=== PATIENT | male | born 1960 | race African-American/Black ===

== ENCOUNTER 2018-06-29 16:56 | Inpatient (IN) | payer SELFPAY ==
[~2018-06-29] VITALS: Ht 193 cm; Wt 117.9 kg
[2018-06-29] MEDS ORDERED: cloNIDine HCL 0.1 MG TAB PO ONE (17:15)
[2018-06-29 19:41] LABS: Basophils # (auto) 0 uL; Basophils % (auto) 0.9 % (0.0-2.0); Eosinophils # (auto) 0.1 uL; Eosinophils % (auto) 1.4 % (0.0-7.0); Hematocrit 44.7 % (41.0-53.0); Hemoglobin 14.8 g/dL (13.5-17.5); Lymphocytes # (auto) 1.6 uL; Lymphocytes % (auto) 28.3 % (10.0-50.0); Mean Corpuscular Hgb Conc. 33.1 g/dL (32.0-36.0); Mean Corpuscular Volume 87.8 fL (80.0-100.0); Monocytes # (auto) 0.6 uL; Monocytes % (auto) 10.8 % (0.0-12.0); Neutrophils # (auto) 3.3 uL; Neutrophils % (auto) 58.6 % (37.0-80.0); Platelet Count (auto) 221 10^3/uL (140-450); Red Cell Distribution Width 14.9 % (11.8-14.3); White Blood Cell 5.6 10^3/uL (4.4-10.8)
[2018-06-29 19:44] LABS: Partial Thromboplastin Time 27.7 sec (23.78-33.04); Prothrombin Time 10.7 sec (9.27-12.13)
[2018-06-29 19:55] LABS: Albumin 3.6 g/dL (3.4-5.0); Calcium 8.7 mg/dL (8.5-10.1)
[2018-06-29 20:03] LABS: BUN/Creatinine Ratio 11.3; Bilirubin, Total 0.5 mg/dL (0.2-1.0); Total Protein 7.3 g/dL (6.4-8.2)
[2018-06-29] MEDS ORDERED: ASPirin 81 mg TAB PO ONE (20:15)
[2018-06-29] MEDS ORDERED: hydrALAZINE HCL 20 MG/ML VL IV ONE (21:30)
[2018-06-29] MEDS: METOPROLOL TARTRATE 25 MG TAB PO SCH (22:00)
[2018-06-29] MEDS: ATORVASTATIN 20 MG TAB PO SCH (22:00)
[2018-06-29] MEDS ORDERED: ONDANSETRON HCL 4 MG/2 ML VIAL IV PRN (22:00)
[2018-06-29] MEDS ORDERED: MORPHINE SULFATE 4 MG/ML SYR/VIAL IV PRN (23:00)
[2018-06-29] MEDS ORDERED: NITROGLYCERIN 0.4 MG SL TAB SL PRN (23:00)
[2018-06-29] MEDS ORDERED: ENOXAPARIN SOD 120 MG/0.8 ML SYRINGE SC ONE (23:20)
[2018-06-30] MEDS: NITROGLYCERIN 50MG/250ML 250 ML IV SCH ×2 (00:22→16:49)
[2018-06-30 01:46] LABS: Urine WBC None Seen /hpf (0 - 3)
[2018-06-30 01:52] LABS: Urine Bacteria NONE SEEN /hpf (None Seen); Urine Blood Negative /uL (Negative); Urine Specific Gravity 1.003 (1.001-1.035)
[2018-06-30 03:06] LABS: Alcohol, Urine < 3.0 mg/dL (0-5); Amphetamine Screen, Urine NEGATIVE (NEGATIVE); Barbiturate Scree,Urine NEGATIVE (NEGATIVE); Benzodiazephine Screen, Urine NEGATIVE (NEGATIVE); Cannabinoid Screen, Urine POSITIVE (NEGATIVE); Cocaine Screen, Urine NEGATIVE (NEGATIVE); Opiate Scree,Urine NEGATIVE (NEGATIVE); Phencyclidine Screen, Urine NEGATIVE (NEGATIVE)
[2018-06-30 06:30] LABS: Basophils # (auto) 0 uL; Basophils % (auto) 0.8 % (0.0-2.0); Eosinophils # (auto) 0.1 uL; Eosinophils % (auto) 1.7 % (0.0-7.0); Hematocrit 43.5 % (41.0-53.0); Hemoglobin 14.4 g/dL (13.5-17.5); Lymphocytes # (auto) 1.6 uL; Lymphocytes % (auto) 29.7 % (10.0-50.0); Mean Corpuscular Hemoglobin 28.8 pg (28.0-32.0); Mean Corpuscular Hgb Conc. 33.2 g/dL (32.0-36.0); Mean Corpuscular Volume 86.9 fL (80.0-100.0); Monocytes # (auto) 0.6 uL; Monocytes % (auto) 12.1 % (0.0-12.0); Neutrophils # (auto) 2.9 uL; Neutrophils % (auto) 55.7 % (37.0-80.0); Nucleated Red Blood Cells % 0.1 %; Platelet Count (auto) 208 10^3/uL (140-450); Red Cell Distribution Width 14.9 % (11.8-14.3); White Blood Cell 5.2 10^3/uL (4.4-10.8)
[2018-06-30 06:48] LABS: Calcium 8.7 mg/dL (8.5-10.1)
[2018-06-30 06:53] LABS: BUN/Creatinine Ratio 11.9
[2018-06-30] MEDS: ACETAMINOPHEN 500 MG TAB PO PRN ×2 (07:50→13:47)
[2018-06-30] MEDS: ASPirin-EC 81 mg tab PO SCH (09:39)
[2018-06-30] MEDS: ENOXAPARIN SOD 120 MG/0.8 ML SYRINGE SC SCH ×2 (09:39→21:53)
[2018-06-30] MEDS: METOPROLOL TARTRATE 25 MG TAB PO SCH (09:39)
[2018-06-30] MEDS ORDERED: METOPROLOL TARTRATE 1MG/1ML-5ML VIAL IV ONE (15:15)
[2018-06-30] MEDS: cloNIDine HCL 0.1 MG TAB PO PRN ×2 (16:25→19:14)
[2018-06-30] MEDS ORDERED: HCTZ 25 MG TAB PO ONE (19:15)
[2018-06-30] MEDS ORDERED: POTASSIUM CHLORIDE 8 MEQ TAB PO ONE (19:15)
[2018-06-30] MEDS: ATORVASTATIN 20 MG TAB PO SCH (21:51)
[2018-06-30] MEDS: METOPROLOL TARTRATE 50 MG TAB PO SCH (21:52)
[2018-06-30] MEDS: cloNIDine HCL 0.1 MG TAB PO SCH (21:52)
[2018-06-30] MEDS: LISINOPRIL 20 MG TAB PO SCH (21:53)
[2018-07-01 05:45] VITALS: BP 137/76
--- NOTE | 2018-07-01 05:45 | NUR ---
Telemetry admit from ER COLTEN WEEKSDERICK admitted to Telemetry unit after hand off tool received. Patient oriented to primary RN, unit, room, bed, and unit policies regarding patient care and visiting hours. Patient now on continuous telemetry monitoring, tele box #24 and telemetry reading on arrival to unit is SR 62. Patient placed on bedside weighed by bedscale and encouraged to call if they need something. All questions and concerns addressed, patient verbalized understanding.
[2018-07-01 06:14] LABS: Basophils # (auto) 0 uL; Basophils % (auto) 0.4 % (0.0-2.0); Eosinophils # (auto) 0.1 uL; Eosinophils % (auto) 1.1 % (0.0-7.0); Hematocrit 41.6 % (41.0-53.0); Hemoglobin 13.9 g/dL (13.5-17.5); Lymphocytes # (auto) 2.1 uL; Lymphocytes % (auto) 26.4 % (10.0-50.0); Mean Corpuscular Hgb Conc. 33.3 g/dL (32.0-36.0); Mean Corpuscular Volume 87.1 fL (80.0-100.0); Monocytes # (auto) 1.2 uL; Monocytes % (auto) 14.6 % (0.0-12.0); Neutrophils # (auto) 4.6 uL; Neutrophils % (auto) 57.5 % (37.0-80.0); Platelet Count (auto) 198 10^3/uL (140-450); Red Blood Cells 4.78 10^6/uL (4.5-5.90); Red Cell Distribution Width 14.5 % (11.8-14.3); White Blood Cell 7.9 10^3/uL (4.4-10.8)
[2018-07-01 06:37] LABS: Albumin 3.3 g/dL (3.4-5.0); Calcium 8.5 mg/dL (8.5-10.1)
[2018-07-01 06:45] LABS: BUN/Creatinine Ratio 12.4; Bilirubin, Total 1.2 mg/dL (0.2-1.0); Total Protein 6.9 g/dL (6.4-8.2)
[2018-07-01 08:57] VITALS: BP 134/76
[2018-07-01] MEDS ORDERED: POTASSIUM CHLORIDE 8 MEQ TAB PO SCH (10:00)
[2018-07-01] MEDS ORDERED: HCTZ 25 MG TAB PO SCH (10:00)
--- NOTE | 2018-07-01 10:26 | NUR ---
assessment Per consult no pcp. Stephanie Avitia to see patient for PCP. Addendum: 07/03/18 at 1727 by Stephanie Elena Amended: Links added.
[2018-07-01] MEDS: METOPROLOL TARTRATE 50 MG TAB PO SCH (10:54)
[2018-07-01] MEDS: cloNIDine HCL 0.1 MG TAB PO SCH (10:55)
[2018-07-01] MEDS: ASPirin-EC 81 mg tab PO SCH (10:57)
[2018-07-01] MEDS: LISINOPRIL 20 MG TAB PO SCH (10:58)
[2018-07-01] MEDS: ENOXAPARIN SOD 120 MG/0.8 ML SYRINGE SC SCH (10:59)
--- NOTE | 2018-07-01 11:00 | NUR ---
SITTING ON BED C/O OF UN ABLE TO KUMAR WITH LT. HAND, DR. JAEGER IS AWARE, NOT IN DISTRESS, DENIED PAIN.
--- NOTE | 2018-07-01 11:26 | NUR ---
RECEIVED THE PATIENT ALERT AND ORIENTED X4, NOT IN DISTRESS, CLEAR SOUNDS IN BILATERAL UPPER AND LOWER LL, RR=18 SAT 97% IN RA, DENIED CHEST PAIN, S RHYTHM R=86, ABDOMEN SOFT WITH ACTIVE BS, TOLERATED 100% OF BREAKFAST TRAY, LAST BM=06/30/18 REPORTED, SKIN INTACT WARM TO TOUCH, RADIAL AND PEDAL PULSES PALPABLE, AMBULATED TO BR, TOLERATED WELL, PENDING SS CONSULT, WILL CONTINUE MONITORING.
[2018-07-01 12:05] VITALS: BP 140/80
--- NOTE | 2018-07-01 17:00 | NUR ---
D/C INFORMATION AND FOLLOW UP INFORMATION AND MEDICATION GUIDANCE WAS GIVEN, VERBALIZED UNDERSTANDING, D/C TELE AND IV SITE FROM RT. FA, TOLERATED WELL, VS T=98.1 RR=18 SAT=98% P=72 VA=985/72, NOT IN DISTRESS, DENIED PAIN, D/C HOME ON WC ACCOMPANIED BY SISTER, TOOK ALL BELONGINGS AND LEFT NOTHING BEHIND.
== END 2018-07-01 16:30 | disposition home or self-care (01) | DRG 65 ==
LOC: ER 16:56 → TELE 23:02 → TELE-EAST 07-01 05:45
PROVIDERS: ADMIT Nurse Practitioner Family; ATTEND Internal Medicine
DX: I63.9 Cerebral infarction, unspecified (principal); G81.94 Hemiplegia, unspecified affecting left nondominant side; N18.2 Chronic kidney disease, stage 2 (mild); I12.9 Hypertensive chronic kidney disease with stage 1 through stage 4 chronic kidney disease, or unspecified chronic kidney disease; R47.81 Slurred speech; F12.90 Cannabis use, unspecified, uncomplicated; Z82.49 Family history of ischemic heart disease and other diseases of the circulatory system; Z91.19 Patient's noncompliance with other medical treatment and regimen
CPT/HCPCS: 36415; 70450; 71045; 80048; 80053; 80061; 80307; 81001; 83735; 83880; 84443; 84484; 85025; 85610; 85730; 93005; 96372; 96374; 96375; G0378

== ENCOUNTER 2023-07-15 10:23 | Inpatient (IN) | payer MEDICAID ==
[~2023-07-15] VITALS: Ht 193 cm; Wt 112.3 kg
[2023-07-15] MEDS: SODIUM CHLORIDE 0.9% 1,000 ML IVB ONE (11:13)
[2023-07-15 11:19] LABS: Basophils # (auto) 0 10 ^3/uL (0-0.2); Basophils % (auto) 0.6 % (0.0-2.0); Eosinophils # (auto) 0.2 10 ^3/uL (0-0.8); Eosinophils % (auto) 2.6 % (0.0-7.0); Hematocrit 47.7 % (41.0-53.0); Hemoglobin 15.4 g/dL (13.5-17.5); Lymphocytes # (auto) 2.1 10 ^3/uL (0.4-5.4); Lymphocytes % (auto) 30.3 % (10.0-50.0); Mean Corpuscular Hemoglobin 28.6 pg (28.0-32.0); Mean Corpuscular Hgb Conc. 32.4 g/dL (32.0-36.0); Mean Corpuscular Volume 88.3 fL (80.0-100.0); Monocytes % (auto) 15.3 % (0.0-12.0); Neutrophils # (auto) 3.5 10 ^3/uL (1.6-8.6); Neutrophils % (auto) 51.2 % (37.0-80.0); Nucleated Red Blood Cells % 0.1 %; Red Cell Distribution Width 14.8 % (11.8-14.3); White Blood Cell 6.8 10^3/uL (4.4-10.8)
[2023-07-15 12:05] LABS: Albumin 4.7 g/dL (3.2-4.8); Alkaline Phosphatase 95 U/L (46-116); Anion Gap 8 (5-15); Aspartate Aminotransferase 25 U/L (13-40); Blood Urea Nitrogen 22 mg/dL (9-23); Calcium 9.6 mg/dL (8.5-10.1); Carbon Dioxide 28 mmol/L (20-30); Chloride 101 mmol/L (98-107); Glucose 107 mg/dL (74-106); Sodium 137 mmol/L (136-145)
[2023-07-15 12:06] LABS: Total Protein 7.7 g/dL (5.7-8.2)
[2023-07-15 12:19] LABS: Alanine Aminotransferase 18 U/L (7-40); Lipase 50 U/L (12-53)
[2023-07-15] MEDS: PANTOPRAZOLE 40 MG/10 ML VIAL INJ IV ONE (12:21)
[2023-07-15] MEDS: PROCHLORPERAZINE EDISYLATE 5 MG/ML 2ML VIAL IV ONE (12:21)
[2023-07-15 12:57] LABS: INR 1.13 (0.9-1.15); Prothrombin Time 11.8 sec (9.3-11.8)
[2023-07-15] MEDS ORDERED: MET50T PO (13:05)
[2023-07-15] MEDS ORDERED: HYDR25TA87 PO (13:05)
[2023-07-15] MEDS ORDERED: ACETAMINOPHEN 325 MG TAB PO PRN (13:15)
[2023-07-15] MEDS ORDERED: KETOROLAC TROMETH 30 MG/ML 1ML VIAL IV ONE (13:15)
[2023-07-15] MEDS ORDERED: ONDANSETRON HCL 4 MG/2 ML VIAL IV PRN (13:15)
[2023-07-15] MEDS: SODIUM CHLORIDE 0.9% 1,000 ML IV ONE (13:44)
[2023-07-15] MEDS: SODIUM CHLORIDE 0.9% 1,000 ML IV SCH (13:44)
[2023-07-15 14:08] LABS: Urine Bacteria NONE SEEN /hpf (None Seen); Urine Blood Negative /uL (Negative); Urine Clarity Clear (Clear); Urine Color Yellow (Yellow); Urine Hyaline Cast FEW /lpf (0 - 2); Urine Mucus FEW (None Seen); Urine Protein, UAD 2+ (Negative); Urine Specific Gravity 1.031 (1.001-1.035); Urine WBC 2 /hpf (0 - 3)
[2023-07-15 15:42] VITALS: O2SAT 98
[2023-07-15] MEDS: MORPHINE SULFATE 4 MG/ML SYR/VIAL IV ONE (16:29)
[2023-07-15 16:41] VITALS: BP 152/96; PULSE 87; RESP 18; TEMP 98.4; O2SAT 98
[2023-07-15 20:00] VITALS: PULSE 68; RESP 17; O2SAT 93
[2023-07-15 21:00] VITALS: BP 134/83; PULSE 68; RESP 17; TEMP 97.9; O2SAT 93
[2023-07-15] MEDS: METOPROLOL TARTRATE 50 MG TAB PO SCH (21:38)
[2023-07-16] VITALS (7 sets, daily range): BP systolic 125–170; BP diastolic 85–98; PULSE 66–98; RESP 17–18; TEMP 98.1–98.9; O2SAT 94–99
[2023-07-16 06:48] LABS: Basophils # (auto) 0 10 ^3/uL (0-0.2); Basophils % (auto) 0.6 % (0.0-2.0); Eosinophils # (auto) 0.2 10 ^3/uL (0-0.8); Eosinophils % (auto) 3.2 % (0.0-7.0); Hematocrit 41.8 % (41.0-53.0); Hemoglobin 13.8 g/dL (13.5-17.5); Lymphocytes # (auto) 1.7 10 ^3/uL (0.4-5.4); Lymphocytes % (auto) 30.2 % (10.0-50.0); Mean Corpuscular Hemoglobin 28.8 pg (28.0-32.0); Mean Corpuscular Hgb Conc. 32.9 g/dL (32.0-36.0); Mean Corpuscular Volume 87.5 fL (80.0-100.0); Monocytes # (auto) 0.9 10 ^3/uL (0-1.3); Monocytes % (auto) 15.5 % (0.0-12.0); Neutrophils # (auto) 2.9 10 ^3/uL (1.6-8.6); Neutrophils % (auto) 50.5 % (37.0-80.0); Nucleated Red Blood Cells % 0.1 %; Red Blood Cells 4.78 10^6/uL (4.5-5.90); Red Cell Distribution Width 14.4 % (11.8-14.3); White Blood Cell 5.8 10^3/uL (4.4-10.8)
[2023-07-16 06:58] LABS: Alanine Aminotransferase 13 U/L (7-40); Albumin 3.7 g/dL (3.2-4.8); Alkaline Phosphatase 79 U/L (46-116); Anion Gap 4 (5-15); Aspartate Aminotransferase 14 U/L (13-40); BUN/Creatinine Ratio 13.3 (10.0-20.0); Blood Urea Nitrogen 16 mg/dL (9-23); Calcium 8.6 mg/dL (8.7-10.4); Carbon Dioxide 26 mmol/L (20-30); Chloride 108 mmol/L (98-107); Glucose 98 mg/dL (74-106); Potassium 4.2 mmol/L (3.5-5.1); Sodium 138 mmol/L (136-145)
[2023-07-16 06:59] LABS: Total Protein 6.1 g/dL (5.7-8.2)
[2023-07-16 09:57] LABS: Triglycerides 91 mg/dL (< 150)
[2023-07-16 09:58] LABS: LDL Cholesterol 100 mg/dL (< 100)
[2023-07-16 09:59] LABS: Cholesterol 142 mg/dL (< 200); HDL Cholesterol 27 mg/dL (40-59)
[2023-07-16] MEDS: PANTOPRAZOLE 40 MG/10 ML VIAL INJ IV SCH (12:17)
[2023-07-16] MEDS: hydrALAZINE HCL 25 MG TAB PO SCH (12:17)
[2023-07-16] MEDS: cefTRIAXone 1GM/50ML D5W 50 ML IV ONE (12:18)
[2023-07-16] MEDS ORDERED: metroNIDAZOLE 500MG/100ML 100 ML IV SCH ×2 (14:00→17:00)
[2023-07-16] MEDS: metroNIDAZOLE 500MG/100ML 100 ML IV SCH (21:32)
[2023-07-16] MEDS: LACTULOSE 20Gm/30ML SOLN PO PRN (21:37)
[2023-07-17] VITALS (9 sets, daily range): BP systolic 128–179; BP diastolic 55–99; PULSE 62–102; RESP 14–20; TEMP 97.9–99; O2SAT 94–100
[2023-07-17 06:30] LABS: Basophils # (auto) 0 10 ^3/uL (0-0.2); Basophils % (auto) 0.8 % (0.0-2.0); Eosinophils # (auto) 0.2 10 ^3/uL (0-0.8); Eosinophils % (auto) 3.6 % (0.0-7.0); Hematocrit 39.5 % (41.0-53.0); Lymphocytes # (auto) 1.5 10 ^3/uL (0.4-5.4); Lymphocytes % (auto) 28.5 % (10.0-50.0); Mean Corpuscular Hemoglobin 28.7 pg (28.0-32.0); Mean Corpuscular Hgb Conc. 32.9 g/dL (32.0-36.0); Mean Corpuscular Volume 87.3 fL (80.0-100.0); Monocytes # (auto) 0.9 10 ^3/uL (0-1.3); Monocytes % (auto) 16.7 % (0.0-12.0); Neutrophils # (auto) 2.7 10 ^3/uL (1.6-8.6); Neutrophils % (auto) 50.4 % (37.0-80.0); Nucleated Red Blood Cells % 0.1 %; Red Blood Cells 4.53 10^6/uL (4.5-5.90); Red Cell Distribution Width 14.4 % (11.8-14.3); White Blood Cell 5.4 10^3/uL (4.4-10.8)
[2023-07-17 06:48] LABS: Alanine Aminotransferase 12 U/L (7-40); Alkaline Phosphatase 80 U/L (46-116); Anion Gap 6 (5-15); Aspartate Aminotransferase 16 U/L (13-40); BUN/Creatinine Ratio 9.1 (10.0-20.0); Blood Urea Nitrogen 11 mg/dL (9-23); Calcium 8.7 mg/dL (8.5-10.1); Carbon Dioxide 26 mmol/L (20-30); Chloride 107 mmol/L (98-107); Glucose 88 mg/dL (74-106); Sodium 139 mmol/L (136-145)
[2023-07-17 06:49] LABS: Albumin 3.7 g/dL (3.2-4.8); Bilirubin, Total 0.9 mg/dL (0.2-1.0); Total Protein 5.9 g/dL (5.7-8.2)
[2023-07-17 07:49] LABS: INR 1.18 (0.9-1.15); Partial Thromboplastin Time 28.8 SEC (24.5-34.5); Prothrombin Time 12.3 sec (9.3-11.8)
[2023-07-17] MEDS: cefTRIAXone 1GM/50ML D5W 50 ML IV SCH (09:21)
[2023-07-17] MEDS ORDERED: fentaNYL CITRATE 100 MCG/2 ML VL ONE (10:02)
[2023-07-17] MEDS ORDERED: GLYCOPYRROLATE 0.2 MG/ML 1ML VIAL ONE (10:02)
[2023-07-17] MEDS ORDERED: ROCURONIUM 10MG/ML 10ML VIAL IV ONE (10:02)
[2023-07-17] MEDS ORDERED: NEOSTIGMINE 1 MG/ML INJ (10mg/10ML VIAL) ONE (10:02)
[2023-07-17] MEDS ORDERED: MEPERIDINE HCL (50 MG/ML) 1 ML VIAL ONE (10:02)
[2023-07-17] MEDS ORDERED: MIDAZOLAM HCL 2MG/2ML 2ml VIAL (1mg/ml) ONE (10:02)
[2023-07-17] MEDS ORDERED: SODIUM CHLORIDE LOCK 10 ML ONE (10:02)
[2023-07-17] MEDS ORDERED: DexAMETHasone SOD PHOS 10MG/1ML VIAL INJ ONE (10:02)
[2023-07-17] MEDS ORDERED: ONDANSETRON HCL 4 MG/2 ML VIAL ONE (10:02)
[2023-07-17] MEDS ORDERED: KETAMINE 50mg/ML 1ml syringe ONE (10:02)
[2023-07-17] MEDS ORDERED: LIDOCAINE 1% INJ PF 5ML AMP ONE (10:03)
[2023-07-17] MEDS ORDERED: LIDOCAINE HCL 2% TOP JELLY 5ML TOP ONE (10:03)
[2023-07-17] MEDS ORDERED: METOCLOPRAMIDE HCL 5MG/ml INJ 2ml VIAL IV ONE (10:45)
[2023-07-17] MEDS ORDERED: HYDROmorphone HCL 2 MG/ML VL/or syr IV PRN ×2 (10:45)
[2023-07-17] MEDS ORDERED: MORPHINE SULFATE INJ 2 MG/ml SYRG IV PRN (10:45)
[2023-07-17] MEDS: POVIDONE IODINE 10 % TOPICAL OINT 30GM TOP ONE (12:01)
[2023-07-17] MEDS: ERGOCALCIFEROL 50,000 UNIT(1.25MG) CAP PO SCH (15:38)
[2023-07-17] MEDS: HYDROmorphone HCL 2 MG/ML VL/or syr IV PRN (19:38)
[2023-07-18] VITALS (8 sets, daily range): BP systolic 139–165; BP diastolic 85–91; PULSE 65–86; RESP 18–20; TEMP 98.4–99.8; O2SAT 92–97
[2023-07-18 05:59] LABS: Basophils # (auto) 0 10 ^3/uL (0-0.2); Basophils % (auto) 0.8 % (0.0-2.0); Eosinophils # (auto) 0.1 10 ^3/uL (0-0.8); Hematocrit 40.6 % (41.0-53.0); Lymphocytes # (auto) 1.2 10 ^3/uL (0.4-5.4); Lymphocytes % (auto) 18.9 % (10.0-50.0); Mean Corpuscular Hemoglobin 28.5 pg (28.0-32.0); Mean Corpuscular Hgb Conc. 32.1 g/dL (32.0-36.0); Mean Corpuscular Volume 88.6 fL (80.0-100.0); Monocytes # (auto) 0.8 10 ^3/uL (0-1.3); Neutrophils # (auto) 4.2 10 ^3/uL (1.6-8.6); Neutrophils % (auto) 65.3 % (37.0-80.0); Red Blood Cells 4.58 10^6/uL (4.5-5.90); Red Cell Distribution Width 14.3 % (11.8-14.3); White Blood Cell 6.4 10^3/uL (4.4-10.8)
[2023-07-18 06:20] LABS: Alanine Aminotransferase 20 U/L (7-40); Albumin 3.7 g/dL (3.2-4.8); Alkaline Phosphatase 80 U/L (46-116); Anion Gap 8 (5-15); Aspartate Aminotransferase 26 U/L (13-40); BUN/Creatinine Ratio 10.1 (10.0-20.0); Blood Urea Nitrogen 10 mg/dL (9-23); Calcium 8.7 mg/dL (8.5-10.1); Carbon Dioxide 24 mmol/L (20-30); Chloride 107 mmol/L (98-107); Glucose 86 mg/dL (74-106); Potassium 4.1 mmol/L (3.5-5.1); Sodium 139 mmol/L (136-145)
[2023-07-18 06:21] LABS: Bilirubin, Total 0.8 mg/dL (0.2-1.0); Total Protein 5.6 g/dL (5.7-8.2)
[2023-07-18] MEDS: hydrALAZINE HCL 20 MG/ML VL IV PRN (14:40)
[2023-07-18] MEDS: ACETAMINOPHEN/CODEINE#3 (300/30mg) TAB PO PRN (20:21)
[2023-07-19] VITALS (8 sets, daily range): BP systolic 139–172; BP diastolic 80–93; PULSE 61–90; RESP 14–22; TEMP 97.8–98.6; O2SAT 92–99
[2023-07-20 00:57] VITALS: BP 177/98; PULSE 71; RESP 16; TEMP 98.1; O2SAT 98
[2023-07-20 05:00] VITALS: BP 173/107; PULSE 80; RESP 16; TEMP 98.6; O2SAT 97
[2023-07-20 09:00] VITALS: BP 186/97; PULSE 75; RESP 18; TEMP 97.9; O2SAT 99
[2023-07-20] MEDS ORDERED: CEPH500C PO (12:44)
[2023-07-20] MEDS ORDERED: METR-344 PO (12:44)
[2023-07-20] MEDS ORDERED: hydrALAZINE HCL 20 MG/ML VL IV PRN (12:45)
[2023-07-20 13:30] VITALS: BP 146/84; PULSE 71; RESP 20; TEMP 98.1; O2SAT 97
[2023-07-20 14:05] VITALS: BP 146/84; PULSE 71; RESP 20; TEMP 98.1; O2SAT 97
== END 2023-07-20 16:21 | disposition home or self-care (01) | DRG 263 ==
LOC: ER 10:23 → OVERFLOW 13:01 → WEST WING 15:46
PROVIDERS: ADMIT Internal Medicine; ATTEND Internal Medicine
PROC: 0FT44ZZ Resection of Gallbladder, Percutaneous Endoscopic Approach (ICD-10-PCS; principal; 2023-07-15)
DX: K80.00 Calculus of gallbladder with acute cholecystitis without obstruction (principal); N17.0 Acute kidney failure with tubular necrosis; I10 Essential (primary) hypertension; K57.90 Diverticulosis of intestine, part unspecified, without perforation or abscess without bleeding; K66.0 Peritoneal adhesions (postprocedural) (postinfection); K52.9 Noninfective gastroenteritis and colitis, unspecified; K82.8 Other specified diseases of gallbladder; Z86.73 Personal history of transient ischemic attack (TIA), and cerebral infarction without residual deficits; Z82.49 Family history of ischemic heart disease and other diseases of the circulatory system; Z87.891 Personal history of nicotine dependence
CPT/HCPCS: 36415; 71045; 74176; 76705; 78226; 80053; 80061; 81001; 82247; 82306; 82607; 83036; 83690; 83930; 85025; 85610; 85730; 86850; 86900; 86901; 87070; 87075; 87081; 87205; 96361; 96374; 96375; 97110; 97116; 97163; 97530; C9113; G0378; J1100; J2250; J2405; J3490

== ENCOUNTER 2023-08-10 09:17 | Emergency (ER) | payer MEDICAID ==
[~2023-08-10 09:17] MED LIST: CEPH500C PO; HYDR25TA87 PO; MET50T PO; METR-344 PO
== END 2023-08-10 10:04 | disposition left against medical advice (07) ==
LOC: ER 09:17
DX: Z48.00 Encounter for change or removal of nonsurgical wound dressing (principal); Z53.21 Procedure and treatment not carried out due to patient leaving prior to being seen by health care provider

== ENCOUNTER 2024-10-15 13:50 | Emergency (ER) | payer MEDICAID ==
[~2024-10-15] VITALS: Ht 193 cm; Wt 124.7 kg
[~2024-10-15 13:50] MED LIST changes: +ASPI-325 PO; +ATOR40TA52 PO; +CARV6.2551 PO; -CEPH500C PO; -HYDR25TA87 PO; +LOSA-534 PO; -MET50T PO; -METR-344 PO; +NIFE1TAB31 PO
[2024-10-15 15:28] LABS: Basophils # (auto) 0.1 10 ^3/uL (0-0.2); Basophils % (auto) 0.8 % (0.0-2.0); Eosinophils # (auto) 0.1 10 ^3/uL (0-0.8); Eosinophils % (auto) 1.7 % (0.0-7.0); Hematocrit 44.9 % (41.0-53.0); Hemoglobin 15.2 g/dL (13.5-17.5); Lymphocytes # (auto) 1.5 10 ^3/uL (0.4-5.4); Lymphocytes % (auto) 23.9 % (10.0-50.0); Mean Corpuscular Hemoglobin 29.1 pg (28.0-32.0); Mean Corpuscular Hgb Conc. 33.7 g/dL (32.0-36.0); Mean Corpuscular Volume 86.3 fL (80.0-100.0); Monocytes % (auto) 15.5 % (0.0-12.0); Neutrophils # (auto) 3.6 10 ^3/uL (1.6-8.6); Neutrophils % (auto) 58.1 % (37.0-80.0); Nucleated Red Blood Cells % 0.1 %; Platelet Count (auto) 216 10^3/uL (140-450); Red Blood Cells 5.21 10^6/uL (4.5-5.90); Red Cell Distribution Width 14.4 % (11.8-14.3); White Blood Cell 6.2 10^3/uL (4.4-10.8)
--- NOTE | 2024-10-15 15:40 | ED.PDOC ---
Musculoskeletal HPI Comments A 63 year old male presents to the ED c/o left lower leg swelling. Patient states he has been experiencing left lower leg swelling with redness that started yesterday. Patient reports he has pain to this area as well and rates the severity of his pain at this time as a 9/10. Patient notes his pain is worse when walking. Patient denies chest pain, SOB, abdominal pain, numbness/tingling of extremities. No other symptoms or modifying factors reported at this time. Chief Complaint: Lower Extremity Time Seen by MD: 14:08 Primary Care Provider: RANDAL SWEENEY Reviewed Notes: Nurses Notes, Medications, Allergies Allergies: Coded Allergies: No Known Drug Allergy (Verified Allergy, Unknown, 06/29/18) Pork Allergy (Verified Allergy, Unknown, 07/20/23) Home Meds Active Scripts Cephalexin Monohydrate (Cephalexin) 500 Mg Cap, 1 CAP PO QID for 7 Days, #28 CAP 0 Refills Prov:ADRIANA MEAD NP 10/15/24 Carvedilol (Carvedilol) 6.25 Mg Tab, 6.25 MG PO BID for 28 Days, #56 TAB 0 Refills Prov:MARY GONSALEZ 09/11/24 Atorvastatin Calcium (ATORVASTATIN CALCIUM) 40 Mg Tab, 40 MG PO DAILY for 28 Days, #28 TAB 0 Refills Prov:MARY GONSALEZ 09/11/24 Aspirin (Aspirin Low Dose) 81 Mg Tab, 81 MG PO DAILY for 28 Days, #28 TAB Prov:MARY GONSALEZ 09/11/24 Nifedipine (Nifedipine Er) 30 Mg Tab, 90 MG PO DAILY for 30 Days, #90 TAB Prov:MARY GONSALEZ 09/11/24 Losartan Potassium (Losartan Potassium) 50 Mg Tab, 50 MG PO DAILY for 28 Days, #28 TAB Prov:MARY GONSALEZ 09/11/24 Information Source: Patient Mode of Arrival: Ambulatory Location: Left Extremity Location: Leg (lower leg) Timing: Days Prehospital treatment: None Severity: Moderate Able to Move Extremity: Yes Bear Weight: Fully Pain: Moderate Mechanism: No Trauma, Spontaneous Circumstances: Spontaneous Onset of Symptoms: Spontaneous Symptoms: Swelling, Pain, Erythema DVT Risk Factors: NONE Last Tetanus: Unknown Associated signs and symptoms: None Past Medical History PAST MEDICAL HISTORY: HTN, TIA Surgical History: Denies all surgeries Family History Family History: No family hx of HTN Social History Smoker: Non-Smoker Alcohol: Occasionally Drugs: Marijuana Lives In: Home Constitutional: denies: chills, diaphoresis, fatigue, fever, malaise, sweats, weakness, others EENTM: denies: blurred vision, double vision, ear bleeding, ear discharge, ear drainage, ear pain, ear ringing, eye pain, eye redness, hearing loss, mouth pain, mouth swelling, nasal discharge, nose bleeding, nose congestion, nose pain, photophobia, tearing, throat pain, throat swelling, voice changes, others Respiratory: denies: cough, hemoptysis, orthopnea, SOB at rest, shortness of breath, SOB with excertion, stridor, wheezing, others Cardiovascular: denies: chest pain, dizzy spells, diaphoresis, Dyspnea on exertion, edema, irregular heart beat, left arm pain, lightheadedness, palpitations, PND, syncope, others Gastrointestinal: denies: abdomen distended, abdominal pain, blood streaked bowels, constipated, diarrhea, dysphagia, difficulty swallowing, hematemesis, melena, nausea, poor appetite, poor fluid intake, rectal bleeding, rectal pain, vomiting, others Genitourinary: denies: burning, dysuria, flank pain, frequency, hematuria, incontinence, penile discharge, penile sore, pain, testicle pain, testicle swelling, urgency, others Neurological: denies: dizziness, fainting, headache, left sided numbness, left sided weakness, numbness, paresthesia, pre-existing deficit, right sided numbness, right sided weakness, seizure, speech problems, tingling, tremors, weakness, others Musculoskeletal: reports: others (swelling of left lower leg); denies: back pain, gout, joint pain, joint swelling, muscle pain, muscle stiffness, neck pain Integumetry: reports: others (redness of left lower leg); denies: bruises, change in color, change in hair/nails, dryness, laceration, lesions, lumps, rash, wounds Allergic/Immunocompromised: denies: Difficulty Healing, Frequent Infections, Hives, Itching, others Hematologic/Lymphatic: denies: anemia, blood clots, easy bleeding, easy bruising, swollen glands, others Endocrine: denies: excessive hunger, excessive sweating, excessive thirst, excessive urination, flushing, intolerance to cold, intolerance to heat, unexplained weight gain, unexplained weight loss, others Psychiatric: denies: anxiety, bipolar disorder, depression, hopeless, panic disorder, schizophrenia, sleepless, suicidal, others All Other Systems: Reviewed and Negative Physical Exam General Appearance: No Apparent Distress, Normal HEENT: Normal ENT Inspection, Pharynx Normal, TMs Normal Neck: Full Range of Motion, Non-Tender, Normal, Normal Inspection Respiratory: Chest Non-Tender, Lungs Clear, No Accessory Muscle Use, No Respiratory Distress, Normal Breath Sounds Cardiovascular: No Edema, No JVD, No Murmur, No Gallop, Normal Peripheral Pulses, Regular Rate/Rhythm Breast Exam: Deferred Gastrointestinal: No Organomegaly, Non Tender, No Pulsatile Mass, Normal Bowel Sounds, Soft Genitalia: Deferred Pelvic: Deferred Rectal: Deferred Extremities: No calf tenderness, Normal capillary refill, Normal range of motion, Swelling (Noticeable swelling noted to left lower extremity.) Musculoskeletal : Apperance: Normal Neurologic: Alert, paraplanner II-XII nml as Tested, No Motor Deficits, Normal Affect, Normal Mood, No Sensory Deficits Cerebellar Function: Normal Reflexes: Normal Skin: Dry, Warm, Other (Erythema noted to left lower extremity) Lymphatic: No Adenopathy Was a procedure done? Was a procedure done?: No Differential Diagnosis EXT Differential Diagnosis: Cellulitis, Deep Vein Thrombosis, Sprain, Strain Other Differential Diagnosis Superficial thrombosis X-Ray, Labs, Meds, VS Vital Signs Date Time Temp Pulse Resp B/P (MAP) Pulse Ox O2 Delivery O2 Flow Rate FiO2 10/15/24 14:20 99.0 76 18 156/75 (102) 98 99.0 Lab Test 10/15/24 15:17 Range/Units White Blood Count 6.2 4.4-10.8 10^3/uL Red Blood Count 5.21 4.5-5.90 10^6/uL Hemoglobin 15.2 13.5-17.5 g/dL Hematocrit 44.9 41.0-53.0 % Mean Corpuscular Volume 86.3 80.0-100.0 fL Mean Corpuscular Hemoglobin 29.1 28.0-32.0 pg Mean Corpuscular Hemoglobin Concent 33.7 32.0-36.0 g/dL Red Cell Distribution Width 14.4 H 11.8-14.3 % Platelet Count 216 140-450 10^3/uL Mean Platelet Volume 8.3 6.9-10.8 fL Neutrophils (%) (Auto) 58.1 37.0-80.0 % Lymphocytes (%) (Auto) 23.9 10.0-50.0 % Monocytes (%) (Auto) 15.5 H 0.0-12.0 % Eosinophils (%) (Auto) 1.7 0.0-7.0 % Basophils (%) (Auto) 0.8 0.0-2.0 % Neutrophils # (Auto) 3.6 1.6-8.6 10 ^3/uL Lymphocytes # (Auto) 1.5 0.4-5.4 10 ^3/uL Monocytes # (Auto) 1.0 0-1.3 10 ^3/uL Eosinophils # (Auto) 0.1 0-0.8 10 ^3/uL Basophils # (Auto) 0.1 0-0.2 10 ^3/uL Nucleated Red Blood Cells 0.1 % Erythrocyte Sedimentation Rate 28 H 0-20 mm/hr Sodium Level 141 136-145 mmol/L Potassium Level 4.4 3.5-5.1 mmol/L Chloride Level 105 98-107 mmol/L Carbon Dioxide Level 25 20-31 mmol/L Anion Gap 11 5-15 Blood Urea Nitrogen 13 9-23 mg/dL Creatinine 1.16 0.700-1.30 mg/dL Glomerular Filtration Rate Calc 71 >90 mL/min BUN/Creatinine Ratio 11.2 10.0-20.0 Serum Glucose 88 74-106 mg/dL Lactic Acid Level 0.8 0.4-2.0 mmol/L Calcium Level 10.0 8.7-10.4 mg/dL C-Reactive Protein High Sensitivity 7.94 H <1.0 mg/dL Left lower extremity venous duplex Clinical History: edema Comparison: None Findings: Duplex Doppler evaluation of the deep venous system of the left lower extremity from the common femoral vein to the popliteal vein including color Doppler and spectral/pulsed waveform analysis was performed. The common femoral vein demonstrates appropriate compressibility and waveform variability. There is compressibility/patency of the great saphenous vein at the proximal thigh. The femoral vein demonstrates appropriate compressibility and waveform variability. The deep femoral vein demonstrates appropriate compressibility and waveform variability. The popliteal vein demonstrates appropriate compressibility and waveform variability. There is normal compressibility at the tibioperoneal trunk. Impression: No left femoropopliteal venous thrombosis. If clinical concern/symptoms persist or worsen, short-interval follow-up study is suggested. ATED BY: KEVIN MEJIA MD DICTATED DATE/TIME: 10/15/241549 SIGNED BY: KEVIN MEJIA MD SIGNED DATE/TIME: 10/15/241549 CC: EXAM: XY L TIB FIB XRAY CLINICAL INDICATION: r/o fracture TECHNIQUE: XY L TIB FIB XRAY Comparison: None FINDINGS/IMPRESSION: There is no evidence of acute fracture or dislocation. Moderate left knee tricompartmental The alignment is anatomical. There is no radiopaque foreign body. ATED BY: KEVIN MEJIA MD DICTATED DATE/TIME: 10/15/241551 SIGNED BY: KEVIN MEJIA MD SIGNED DATE/TIME: 10/15/241551 CC: X-Ray, Labs, Meds, VS Comment Patient arrives alert and oriented, ABC's intact, afebrile, vital signs stable, saturating well in room air Peripheral IV insertion+ labs were ordered. CBC was ordered to exclude anemia, blood loss, or infection. BMP was ordered to exclude electrolyte abnormalities, renal failure, dehydration, hyperglycemia BNP were ordered to rule out myocardial infarction, or congestive heart failure. Lactic acid w/ reflex ESR CRP Diagnostic imaging ordered by me and results interpreted by radiology : CV venous Doppler low EXT LT, XR TIB FIB LT Labs in the ED showed: CRP 7.94, ESR 28 Patient was given:_. Tolerated medications with no adverse reaction. Additional MDM Review of External, Non-ED records: External records reviewed. Discussion with independent historian (EMS, family) history obtained from the patient/parents (if applicable) at bedside Chronic conditions affecting care: None Social determinants of health affecting care: None Consideration of admission (observation or admission): I considered escalation of care to admission for this patient, however given the reassuring workup, the patient is safe for outpatient management. Discussion with the Radiology: No Tests considered but not performed: None Prescription medication given: Keflex 500mg Images Reviewed?: Images reviewed and evaluated by me Reevaluation 1ST: Improved Patient Education/Counseling: Diagnosis, Treatment, Need For Follow Up Family Education/Counseling: Diagnosis, Treatment, Need For Follow Up Sepsis Sepsis Reasesment Focused Exam Orders: Laboratory Tests 10/15/24 15:17: Lactic Acid Level 0.8 Departure 1 Departure Time of Disposition: 16:45 Impression: Primary Impression: Left leg swelling Disposition: HOME / SELF CARE / HOMELESS Condition: Stable Additional Instructions: Follow up with PCP in 1-2 days. Return to ED for any new or worsening symptoms. e-Prescriptions Cephalexin Monohydrate (Cephalexin) 500 Mg Cap 1 CAP PO QID for 7 Days, #28 CAP 0 Refills Prov: ADRIANA MEAD [employer] 10/15/24 Discharged With: Self Critical Care Note Critical Care Time?: No Stability Stability form required: No I personally scribed for ADRIANA MEAD [employer] (DANNIOMA) on 10/15/24 at 15:40. Electronically submitted by Raj Mccallum ([employer]). I personally scribed for ADRIANA MEAD [employer]PER[employer] (NETOAYOMA) on 10/15/24 at 16:38. Electronically submitted by Raj Mccallum ([employer]). I personally scribed for ADRIANA MEAD [employer]PER[employer]ING (NETOAYOMA) on 10/15/24 at 16:47. Electronically submitted by Raj Mccallum ([employer]). ADRIANA MEAD [employer]PER[employer] Oct 15, 2024 15:40
[2024-10-15 15:42] LABS: Chloride 105 mmol/L (98-107); Potassium 4.4 mmol/L (3.5-5.1); Sodium 141 mmol/L (136-145)
[2024-10-15 15:43] LABS: Anion Gap 11 (5-15); Carbon Dioxide 25 mmol/L (20-31)
[2024-10-15 15:48] LABS: Glucose 88 mg/dL (74-106)
[2024-10-15 15:49] LABS: BUN/Creatinine Ratio 11.2 (10.0-20.0); Blood Urea Nitrogen 13 mg/dL (9-23)
--- NOTE | 2024-10-15 15:52 | DVH ---
Left lower extremity venous duplex Clinical History: edema Comparison: None Findings: Duplex Doppler evaluation of the deep venous system of the left lower extremity from the common femor al vein to the popliteal vein including color Doppler and spectral/pulsed waveform analysis was perfo rmed. The common femoral vein demonstrates appropriate compressibility and waveform variability. There is compressibility/patency of the great saphenous vein at the proximal thigh. The femoral vein demonstrates appropriate compressibility and waveform variability. The deep femoral vein demonstrates appropriate compressibility and waveform variability. The popliteal vein demonstrates appropriate compressibility and waveform variability. There is normal compressibility at the tibioperoneal trunk. Impression: No left femoropopliteal venous thrombosis. If clinical concern/symptoms persist or worsen, short-interval follow-up study is suggested.
--- NOTE | 2024-10-15 15:55 | DVH ---
EXAM: XY L TIB FIB XRAY CLINICAL INDICATION: r/o fracture TECHNIQUE: XY L TIB FIB XRAY Comparison: None FINDINGS/IMPRESSION: There is no evidence of acute fracture or dislocation. Moderate left knee tricompartmental The alignment is anatomical. There is no radiopaque foreign body.
[2024-10-15 16:01] LABS: CRP High Sensitivity 7.94 mg/dL (<1.0)
[2024-10-15 16:33] LABS: Erythrocyte Sedimentation Rate 28 mm/hr (0-20)
[2024-10-15] MEDS ORDERED: CEPH500C PO (16:45)
[2024-10-15 17:01] VITALS: BP 147/85; PULSE 82; RESP 16; TEMP 98.2; O2SAT 96
== END 2024-10-15 17:07 | disposition home or self-care (01) ==
LOC: ER 13:50
DX: M79.89 Other specified soft tissue disorders (principal); F10.90 Alcohol use, unspecified, uncomplicated; F12.90 Cannabis use, unspecified, uncomplicated; I10 Essential (primary) hypertension; Z86.73 Personal history of transient ischemic attack (TIA), and cerebral infarction without residual deficits; Z79.82 Long term (current) use of aspirin; Z79.899 Other long term (current) drug therapy; Z91.018 Allergy to other foods; Y90.9 Presence of alcohol in blood, level not specified
CPT/HCPCS: 36415; 73590; 80048; 83605; 85025; 85652; 86141; 93971

== ENCOUNTER 2024-11-12 08:55 | Inpatient (IN) | payer MEDICAID ==
[~2024-11-12] VITALS: Ht 193 cm; Wt 124.6 kg
[~2024-11-12 08:55] MED LIST changes: +CEPH500C PO
--- NOTE | 2024-11-12 09:44 | ED.PDOC ---
Musculoskeletal HPI Comments A 63 year-old male, with a PMHX of HTN, presents to the ED with a chief complaint LLE swelling with associated pain as of X3 days ago. Patient states pain is a 10/10, "sharp", feels like "pulling a muscle", with no associated alleviating factors. Symptoms were unprovoked. No associated symptoms. Patient has no further complaints at this time and otherwise denies further associated symptoms of N/V, fever, chills, chest pain, SOB, abdominal pain, or headache. Chief Complaint: Extremity Time Seen by MD: 09:38 Primary Care Provider: ? Reviewed Notes: Nurses Notes, Medications, Allergies Allergies: Coded Allergies: No Known Drug Allergy (Verified Allergy, Unknown, 06/29/18) Pork Allergy (Verified Allergy, Unknown, 07/20/23) Home Meds Active Scripts Hydrocodone-Acetaminophen (Hydrocodone Bitartrate/AC 5-325 mg) 1 Tab Tab, 1 TAB PO TIDP PRN for 7 Days, #20 TAB 0 Refills Prov:WILLIAM FRENCH MD 11/14/24 Rivaroxaban (XARELTO) 20 Mg Tab, 1 TAB PO DAILY for 90 Days, #90 TAB 11 Refills Prov:POOL ALEJANDRO 11/14/24 Rivaroxaban (XARELTO) 15 Mg Tab, 15 MG PO BID for 21 Days, #42 TAB Prov:POOL ALEJANDRO 11/14/24 Cephalexin Monohydrate (Cephalexin) 500 Mg Cap, 1 CAP PO QID for 7 Days, #28 CAP 0 Refills Prov:ADRIANA MEAD NP 10/15/24 Carvedilol (Carvedilol) 6.25 Mg Tab, 6.25 MG PO BID for 28 Days, #56 TAB 0 Refills Prov:MARY GONSALEZ 09/11/24 Atorvastatin Calcium (ATORVASTATIN CALCIUM) 40 Mg Tab, 40 MG PO DAILY for 28 Da ys, #28 TAB 0 Refills Prov:MARY GONSALEZ 09/11/24 Aspirin (Aspirin Low Dose) 81 Mg Tab, 81 MG PO DAILY for 28 Days, #28 TAB Prov:MARY GONSALEZ 09/11/24 Nifedipine (Nifedipine Er) 30 Mg Tab, 90 MG PO DAILY for 30 Days, #90 TAB Prov:YEIMYTimMARY RESENDEZ RESIDENT 09/11/24 Losartan Potassium (Losartan Potassium) 50 Mg Tab, 50 MG PO DAILY for 28 Days, #28 TAB Prov:MARY GONSALEZ RESIDENT 09/11/24 Reported Medications Hydralazine HCl (Hydralazine HCl) 25 Mg Tab, 2 TAB PO BID 11/12/24 Amlodipine Besylate (Amlodipine Besylate) 10 Mg Tab, 1 TAB PO DAILY 11/12/24 Information Source: Patient Mode of Arrival: Ambulatory Location: Left Extremity Location: Calf Severity: Moderate Bear Weight: Limited Pain: Moderate Onset of Symptoms: Spontaneous Symptoms: Swelling, Pain Last Tetanus: UTD Past Medical History PAST MEDICAL HISTORY: HTN, TIA Surgical History: Denies all surgeries Family History Family History: No family hx of HTN Social History Smoker: Non-Smoker Alcohol: Occasionally Drugs: Marijuana Lives In: Home Constitutional: denies: chills, diaphoresis, fatigue, fever, malaise, sweats, weakness, others EENTM: denies: blurred vision, double vision, ear bleeding, ear discharge, ear drainage, ear pain, ear ringing, eye pain, eye redness, hearing loss, mouth pain, mouth swelling, nasal discharge, nose bleeding, nose congestion, nose pain, photophobia, tearing, throat pain, throat swelling, voice changes, others Respiratory: denies: cough, hemoptysis, orthopnea, SOB at rest, shortness of breath, SOB with excertion, stridor, wheezing, others Cardiovascular: denies: chest pain, dizzy spells, diaphoresis, Dyspnea on exertion, edema, irregular heart beat, left arm pain, lightheadedness, palpitations, PND, syncope, others Gastrointestinal: denies: abdomen distended, abdominal pain, blood streaked bowels, constipated, diarrhea, dysphagia, difficulty swallowing, hematemesis, melena, nausea, poor appetite, poor fluid intake, rectal bleeding, rectal pain, vomiting, others Genitourinary: denies: burning, dysuria, flank pain, frequency, hematuria, incontinence, penile discharge, penile sore, pain, testicle pain, testicle swelling, urgency, others Neurological: denies: dizziness, fainting, headache, left sided numbness, left sided weakness, numbness, paresthesia, pre-existing deficit, right sided numbness, right sided weakness, seizure, speech problems, tingling, tremors, weakness, others Musculoskeletal: reports: others (Per HPI ); denies: back pain, gout, joint p ain, joint swelling, muscle pain, muscle stiffness, neck pain Integumetry: denies: bruises, change in color, change in hair/nails, dryness, laceration, lesions, lumps, rash, wounds, others Allergic/Immunocompromised: denies: Difficulty Healing, Frequent Infections, Hives, Itching, others Hematologic/Lymphatic: denies: anemia, blood clots, easy bleeding, easy bruising, swollen glands, others Endocrine: denies: excessive hunger, excessive sweating, excessive thirst, excessive urination, flushing, intolerance to cold, intolerance to heat, unexplained weight gain, unexplained weight loss, others Psychiatric: denies: anxiety, bipolar disorder, depression, hopeless, panic disorder, schizophrenia, sleepless, suicidal, others All Other Systems: Reviewed and Negative Physical Exam General Appearance: Moderate Distress, Normal HEENT: Normal ENT Inspection, Pharynx Normal, TMs Normal Neck: Full Range of Motion, Non-Tender, Normal, Normal Inspection Respiratory: Chest Non-Tender, Lungs Clear, No Accessory Muscle Use, No Respiratory Distress, Normal Breath Sounds Cardiovascular: No Edema, No JVD, No Murmur, No Gallop, Normal Peripheral Pulses, Regular Rate/Rhythm Breast Exam: Deferred Gastrointestinal: No Organomegaly, Non Tender, No Pulsatile Mass, Normal Bowel Sounds, Soft Genitalia: Deferred Pelvic: Deferred Rectal: Deferred Extremities: Leg edema, No calf tenderness, Normal capillary refill, Normal inspection, Normal range of motion, Swelling (Localized edema to the left lower extremity. Plus one pitting edema. No visible erythema. No TTP. Full dorsiflexion plantar flexion. DP 2+. Neurovascular sensation intact. Cap refill less than 3 seconds) Musculoskeletal : Location: Left Extremity Location: Calf Neurologic: Alert, molecular pathologist II-XII nml as Tested, No Motor Deficits, Normal Affect, Normal Mood, No Sensory Deficits Cerebellar Function: Normal Reflexes: Normal Skin: Dry, Normal Color, Warm Lymphatic: No Adenopathy Was a procedure done? Was a procedure done?: No Differential Diagnosis EXT Differential Diagnosis: Cellulitis, Deep Vein Thrombosis, Fracture, Sprain, Contusion, Strain, Arthritis X-Ray, Labs, Meds, VS Vital Signs Date Time Temp Pulse Resp B/P (MAP) Pulse Ox O2 Delivery O2 Flow Rate FiO2 11/12/24 11:07 98.3 98 20 172/78 (109) 97 98.3 11/12/24 11:07 98 20 97 Room Air 11/12/24 09:16 98.4 101 17 158/79 (105) 99 98.4 Lab Test 11/12/24 09:46 Range/Units White Blood Count 9.5 4.4-10.8 10^3/uL Red Blood Count 5.14 4.5-5.90 10^6/uL Hemoglobin 14.9 13.5-17.5 g/dL Hematocrit 45.6 41.0-53.0 % Mean Corpuscular Volume 88.6 80.0-100.0 fL Mean Corpuscular Hemoglobin 29.0 28.0-32.0 pg Mean Corpuscular Hemoglobin Concent 32.7 32.0-36.0 g/dL Red Cell Distribution Width 14.7 H 11.8-14.3 % Platelet Count 258 140-450 10^3/uL Mean Platelet Volume 8.1 6.9-10.8 fL Neutrophils (%) (Auto) 66.4 37.0-80.0 % Lymphocytes (%) (Auto) 21.0 10.0-50.0 % Monocytes (%) (Auto) 11.0 0.0-12.0 % Eosinophils (%) (Auto) 1.3 0.0-7.0 % Basophils (%) (Auto) 0.3 0.0-2.0 % Neutrophils # (Auto) 6.3 1.6-8.6 10 ^3/uL Lymphocytes # (Auto) 2.0 0.4-5.4 10 ^3/uL Monocytes # (Auto) 1.0 0-1.3 10 ^3/uL Eosinophils # (Auto) 0.1 0-0.8 10 ^3/uL Basophils # (Auto) 0 0-0.2 10 ^3/uL Nucleated Red Blood Cells 0.1 % Urine Color Yellow Yellow Urine Clarity Clear Clear Urine pH 6.0 5.0-9.0 Urine Specific [place] 1.028 1.001-1.035 Urine Protein 1+ H Negative Urine Ketones Negative Negative Urine Blood Negative Negative /uL Urine Nitrite Negative Negative Urine Bilirubin Negative Negative Urine Urobilinogen Normal Negative mg/dL Urine Leukocyte Esterase Negative Negative /uL Urine RBC 4 0 - 3 /hpf Urine Microscopic WBC 1 0-3 /HPF Urine Squamous Epithelial Cells None seen <5 /hpf Urine Bacteria None seen None Seen /hpf Urine Mucus Few None Seen Urine Glucose Normal Normal mg/dL Sodium Level 138 136-145 mmol/L Potassium Level 4.1 3.5-5.1 mmol/L Chloride Level 107 98-107 mmol/L Carbon Dioxide Level 19 L 20-31 mmol/L Anion Gap 12 5-15 Blood Urea Nitrogen 11 9-23 mg/dL Creatinine 1.11 0.700-1.30 mg/dL Glomerular Filtration Rate Calc 75 >90 mL/min BUN/Creatinine Ratio 9.9 L 10.0-20.0 Serum Glucose 136 H 74-106 mg/dL Calcium Level 10.2 8.7-10.4 mg/dL Total Bilirubin 0.9 0.2-1.0 mg/dL Aspartate Amino Transferase (AST) 23 13-40 U/L Alanine Aminotransferase (ALT) 19 7-40 U/L Alkaline Phosphatase 99 46-116 U/L B-Type Natriuretic Peptide 62.61 0-100 pg/mL Total Protein 7.6 5.7-8.2 g/dL Albumin 4.8 3.2-4.8 g/dL PATIENT: CHARLOTTE WEEKSACCT: [id number]: [id number] : 1960 LOC: ER ROOM / BED: / AGE / SEX: 63 / M ADM STATUS: REG ER SERVICE [id number] ORDERING PHYSICIAN: ADRIANA MEAD NP PROCEDURE(s): LLDVT - LT Lower DVT REASON: R/o dvt ORDER NUMBER(s): [id number], ACCESSION NUMBER(s): [id number] US LT Lower DVT HISTORY: R/o dvt COMPARISON: US LT LOWER DVT on DOS: 10/15/24 TECHNIQUE: Duplex doppler evaluation of the deep venous system of the lower extremity from the common femoral veins, superficial femoral vein, great saphenous vein, deep femoral vein, popliteal vein, and calf veins, including co gene doppler and spectral/pulsed waveform analysis, was performed. FINDINGS: Left: - Common femoral vein: Compressible - Deep femoral vein: Compressible - Femoral vein: Compressible - Popliteal vein: Non compressible - Posterior tibial vein: Non compressible - Other: Nothing IMPRESSION: Left lower extremity deep venous thrombosis of the popliteal and posterior tibial vein. Findings were communicated per the US tech report. T RADIOGRAPH Indication: R/o PNA, CHF Technique: Frontal and lateral view of the chest was obtained Comparison: None FINDINGS: Lines and Tubes: None Lungs: Clear Pleura: No effusion. No pneumothorax. Cardiomediastinal contours: Unremarkable Bones: Unremarkable IMPRESSION: No evidence of acute disease. X-Ray, Labs, Meds, VS Comment A 63 year-old male, with a PMHX of HTN, presents to the ED with a chief complaint of left calf swelling with associated pain as of X3 days ago. Patient arrives alert and oriented, ABC's intact, afebrile, vital signs stable, saturating well in room air Peripheral IV insertion+ labs were ordered. CBC was ordered to exclude anemia, blood loss, or infection. CMP was ordered to exclude electrolyte abnormalities, renal failure, dehydration, hyperglycemia and/or liver enzyme abnormalities. PT and INR were ordered to rule out coagulopathy. BNP ordered to r/o congestive heart failure. Urinalysis was ordered to rule out UTI or hematuria. CXR: No evidence of acute disease. Diagnostic imaging ordered by me and results interpreted by radiology : Left lower extremity deep venous thrombosis of the popliteal and posterior tibial vein. Ordered: Lovenox 1mg/kg The patient presents with signs and symptoms concerning for deep venous thrombosis. The differential diagnosis includes but is not limited to: DVT, thrombophlebitis, trauma, venous stasis, peripheral edema, cellulitis. Patients work up was significant for Left lower extremity deep venous thrombosis of the popliteal and posterior tibial vein. The patient denies having any shortness of breath, dyspnea on exertion. Additionally, the patient was not hypoxic therefore no indication for further chest imaging to evaluate for PE. Patient has normal oxygenation on room air and did not require any supplemental oxygen. Heart rate has remained stable while in the ED. Nontoxic appearing. The patient's workup reveals that the patient needs further evaluation and/or treatment for the above medical conditions. Patient verbalized understanding of the above and is awaiting further evaluation by the admitting service. Time of 1ST Reevaluation: 10:21 Reevaluation 1ST: Unchanged Patient Education/Counseling: Diagnosis, Treatment Family Education/Counseling: No Family Present Medical Screening: No EMC Exist At This Time Departure 1 Departure Time of Disposition: 10:44 Impression: Primary Impression: Tibial DVT (deep venous thrombosis) Qualified Codes: I82.442 - Acute embolism and thrombosis of left tibial vein Additional Impression: DVT, popliteal, acute Qualified Codes: I82.432 - Acute embolism and thrombosis of left popliteal vein Disposition: ADMITTED INPATIENT Condition: Serious e-Prescriptions Hydrocodone-Acetaminophen (Hydrocodone Bitartrate/AC 5-325 mg) 1 Tab Tab 1 TAB PO TIDP PRN for 7 Days, #20 TAB 0 Refills Prov: WILLIAM FRENCH MD 11/14/24 Rivaroxaban (XARELTO) 20 Mg Tab 1 TAB PO DAILY for 90 Days, #90 TAB 11 Refills Prov: POOL ALEJANDRO 11/14/24 Rivaroxaban (XARELTO) 15 Mg Tab 15 MG PO BID for 21 Days, #42 TAB Prov: POOL ALEJANDRO 11/14/24 Discharged With: Self Critical Care Note Critical Care Time?: No Stability Stability form required: No Heart Score Heart Score: Heart Score Response (Comments) Value History N/A 0 EKG N/A 0 Age N/A 0 Risk Factors N/A 0 Troponin N/A 0 Total 0 I personally scribed for ADRIANA MEAD NP ([email or web address]) on 11/12/24 at 09:44. Electronically submitted by Whitney Pacheco ([employer]). I personally scribed for ADRIANA MEAD NP ([email or web address]) on 11/12/24 at 09:57. Electro nically submitted by Whitney Pacheco ([employer]). I personally scribed for ADRIANA MEAD NP ([email or web address]) on 11/12/24 at 10:47. Elect ronically submitted by Whitney Pacheco ([employer]). I personally scribed for ADRIANA MEAD NP ([email or web address]) on 11/12/24 at 10:48. Leta ctronically submitted by Whitney Pacheco ([facility]). ADRIANA MEAD NP Nov 12, 2024 09:44
[2024-11-12 09:58] LABS: Urine Protein, UAD 1+ (Negative)
[2024-11-12 10:00] LABS: Hematocrit 45.6 % (41.0-53.0); Hemoglobin 14.9 g/dL (13.5-17.5); Mean Corpuscular Hemoglobin 29.0 pg (28.0-32.0); Mean Corpuscular Volume 88.6 fL (80.0-100.0); Nucleated Red Blood Cells % 0.1 %
[2024-11-12 10:19] LABS: Alanine Aminotransferase 19 U/L (7-40); Albumin 4.8 g/dL (3.2-4.8); Alkaline Phosphatase 99 U/L (46-116); Anion Gap 12 (5-15); BUN/Creatinine Ratio 9.9 (10.0-20.0); Bilirubin, Total 0.9 mg/dL (0.2-1.0); Blood Urea Nitrogen 11 mg/dL (9-23); Calcium 10.2 mg/dL (8.7-10.4); Carbon Dioxide 19 mmol/L (20-31); Chloride 107 mmol/L (98-107); Glucose 136 mg/dL (74-106); Potassium 4.1 mmol/L (3.5-5.1); Sodium 138 mmol/L (136-145); Total Protein 7.6 g/dL (5.7-8.2)
--- NOTE | 2024-11-12 10:24 | DVH ---
US LT Lower DVT HISTORY: R/o dvt COMPARISON: US LT LOWER DVT on DOS: 10/15/24 TECHNIQUE: Duplex doppler evaluation of the deep venous system of the lower extremity from the common femoral veins, superficial femoral vein, great saphenous vein, deep femoral vein, popliteal vein, an d calf veins, including color doppler and spectral/pulsed waveform analysis, was performed. FINDINGS: Left: - Common femoral vein: Compressible - Deep femoral vein: Compressible - Femoral vein: Compressible - Popliteal vein: Non compressible - Posterior tibial vein: Non compressible - Other: Nothing IMPRESSION: Left lower extremity deep venous thrombosis of the popliteal and posterior tibial vein. Findings were communicated per the US tech report.
--- NOTE | 2024-11-12 10:44 | DVH ---
CHEST RADIOGRAPH Indication: R/o PNA, CHF Technique: Frontal and lateral view of the chest was obtained Comparison: None FINDINGS: Lines and Tubes: None Lungs: Clear Pleura: No effusion. No pneumothorax. Cardiomediastinal contours: Unremarkable Bones: Unremarkable IMPRESSION: No evidence of acute disease.
[2024-11-12] MEDS ORDERED: ENOXAPARIN SOD 100 MG/1 ML SYRINGE SC ONE (10:45)
[2024-11-12] MEDS ORDERED: ONDANSETRON HCL 4 MG/2 ML VIAL IV PRN (12:45)
[2024-11-12] MEDS ORDERED: MORPHINE SULFATE INJ 2 MG/ml SYRG IV PRN ×2 (12:45)
[2024-11-12] MEDS ORDERED: NITROGLYCERIN 0.4 MG SL TAB SL PRN (12:45)
[2024-11-12] MEDS ORDERED: ACETAMINOPHEN 325 MG TAB PO PRN (12:45)
[2024-11-12] MEDS ORDERED: DOCUSATE SOD 100 MG CAP PO PRN (12:45)
[2024-11-12] MEDS ORDERED: HYDR25TA87 PO (12:46)
[2024-11-12] MEDS ORDERED: AMLO1TAB23 PO (12:46)
[2024-11-12] MEDS: HYDROcodone-ACET 5/325MG TAB PO PRN (13:21)
[2024-11-12 13:27] LABS: Hematocrit 44.5 % (41.0-53.0); Hemoglobin 14.3 g/dL (13.5-17.5); Mean Corpuscular Hemoglobin 28.3 pg (28.0-32.0); Mean Corpuscular Volume 88.0 fL (80.0-100.0); Nucleated Red Blood Cells % 0.1 %
[2024-11-12] MEDS: HEPARIN SODIUM (PORCINE) 5000 UNITS/ML 1ML VIAL IV ONE (13:48)
[2024-11-12] MEDS: HEPARIN DRIP/D5W 100UNITS/ML 250 ML IV SCH ×2 (13:50→22:00)
[2024-11-12 14:20] LABS: INR 1.11 (0.9-1.15); Partial Thromboplastin Time 28.1 SEC (24.5-34.5); Prothrombin Time 11.6 sec (9.3-11.8)
--- NOTE | 2024-11-12 14:34 | CONS ---
Pharmacy Clinical Information: HEPARIN PER PHARMACY SPOKE TO BENY Flynn REGARDING new heparin drip order CURRENT aPTT: 28.1 on 11/12/24 at 13:39 BOLUS: 9000 units IVP X1 PER PROVIDER Initial heparin drip rate 2000 units/hr administered at 1350 on 11/12/2024 Next aPTT: 11/12/2024 AT 20:00 BENY Flynn READ BACK NEW DOSE: 2000 UNITS/HR LORNA Philippe Nov 12, 2024 14:34
[2024-11-12 15:33] VITALS: BP 196/105; PULSE 96; RESP 17; TEMP 97.9; O2SAT 100
--- NOTE | 2024-11-12 16:37 | DVHHP2 ---
History of Present Illness Reason for Visit: left leg pain History of Present Illness Joce Lainez is a 63-year-old male with past medial history TIA, hypertension, and hyperlipidemia, who came to the hospital due to left leg pain and swelling. Patient states his left leg began hurting and swelling about 3 days ago. It was continuing to worsening prompting him to come to the hospital to be evaluated. Patient had a work related injury where he fell onto his left side in December of 2023. He has been on light duty ever since. States he does not have an injury to his leg, but recently had an MRI of his shoulder due to injury there. He has not been as active these last few months due to the injury. 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 Past Surgical History: Hernia Repair Smoke: No ALCOHOL: rare Drugs: Marijuana Lives: with Family Domestic Violence: Neg Review of Systems Constitutional: No: Fever, Chills, Sweats, Weakness, Malaise, Other Eyes: No: Pain, Vision change, Conjunctivae inflammation, Eyelid inflammation, Other, Redness ENT: No: Ear pain, Ear discharge, Nose pain, Nose discharge, Nose congestion, Mouth pain, Mouth swelling, Throat pain, Throat swelling, Other Respiratory: No: Cough, Dry, Shortness of breath, SOB with excertion, Wheezing, Hemoptysis, Pleuritic Pain, Sputum, Wheezing, Other Cardiovascular: Edema (left leg); No: Chest Pain, Palpitations, Orthopnea, Paroxysmal Noc. Dyspnea, Lt Headedness, Other Gastrointestinal: No: Nausea, Vomiting, Abdominal Pain, Diarrhea, Constipation, Melena, Hematochezia, Other Genitourinary: No Dysuria, No Frequency, No Incontinence, No Hematuria, No Retention, No Other Musculoskeletal: leg pain (left); No: other, neck pain, shoulder pain, arm pain, back pain, hand pain, foot pain Skin: No: Rash, Lesions, Jaundice, Bruising, Other Neurological: No: Weakness, Numbness, Incoordination, Change in speech, Confusion, Seizures, Other Allergies: Coded Allergies: No Known Drug Allergy (Verified Allergy, Unknown, 06/29/18) Pork Allergy (Verified Allergy, Unknown, 07/20/23) Medications Current Medications Medications Dose Ordered Sig/Britney Route Start Time Stop Time Status Last Admin Dose Admin Acetaminophen/ Hydrocodone Bitart 1 tab Q4HP PRN PO 11/12/24 12:45 11/12/24 13:21 1 TAB Ondansetron HCl 4 mg Q4HP PRN IV 11/12/24 12:45 Docusate Sodium 100 mg BIDPRN PRN PO 11/12/24 12:45 Acetaminophen 650 mg Q6HP PRN PO 11/12/24 12:45 Morphine Sulfate 2 mg Q4HPRN PRN IV 11/12/24 12:45 Nitroglycerin 0.4 mg Q5MINP PRN SL 11/12/24 12:45 Morphine Sulfate 2 mg Q30M PRN IV 11/12/24 12:45 Heparin Sodium/ Dextrose 250 ml @ 20 mls/hr [id number] IV 11/12/24 12:45 11/12/24 13:50 20 MLS/HR Hydralazine HCl 50 mg BID PO 11/12/24 22:00 Amlodipine Besylate 10 mg DAILY PO 11/13/24 10:00 Clonidine HCl 0.1 mg Q6HP PRN PO 11/12/24 16:30 UNV Exam Vital Signs Vital Signs Date Time Temp Pulse Resp B/P (MAP) Pulse Ox O2 Delivery O2 Flow Rate FiO2 11/12/24 15:33 97.9 96 17 196/105 (135) 100 97.9 11/12/24 15:30 Room Air* 0 21 General Appearance: Alert, Oriented X3, Cooperative, mild distress HEENT: Atraumatic, PERRLA Respiratory: Clear to auscultation, Normal air movement Cardiovascular: Regular rate, Normal S1, Normal S2 Abdominal: Normal bowel sounds, Soft, No tenderness Extremities: No clubbing, No cyanosis, Normal pulses, Other (Left leg edema) Skin: No rashes, No breakdown, No significant lesion Neuro: Normal gait, Normal speech, Strength at 5/5 X4 ext Psych/Mental Status: Mental status NL, Mood NL Labs/Xrays Labs Test 11/12/24 13:39 11/12/24 12:53 11/12/24 09:46 Range/Units Prothrombin Time 11.6 9.3-11.8 sec Prothrombin Time INR 1.11 0.9-1.15 Activated Partial Thromboplast Time 28.1 24.5-34.5 SEC White Blood Count 7.7 4.4-10.8 10^3/uL Red Blood Count 5.06 4.5-5.90 10^6/uL Hemoglobin 14.3 13.5-17.5 g/dL Hematocrit 44.5 41.0-53.0 % Mean Corpuscular Volume 88.0 80.0-100.0 fL Mean Corpuscular Hemoglobin 28.3 28.0-32.0 pg Mean Corpuscular Hemoglobin Concent 32.2 32.0-36.0 g/dL Red Cell Distribution Width 14.5 H 11.8-14.3 % Platelet Count 245 140-450 10^3/uL Mean Platelet Volume 8.1 6.9-10.8 fL Neutrophils (%) (Auto) 61.9 37.0-80.0 % Lymphocytes (%) (Auto) 21.6 10.0-50.0 % Monocytes (%) (Auto) 14.8 H 0.0-12.0 % Eosinophils (%) (Auto) 1.3 0.0-7.0 % Basophils (%) (Auto) 0.4 0.0-2.0 % Neutrophils # (Auto) 4.8 1.6-8.6 10 ^3/uL Lymphocytes # (Auto) 1.7 0.4-5.4 10 ^3/uL Monocytes # (Auto) 1.1 0-1.3 10 ^3/uL Eosinophils # (Auto) 0.1 0-0.8 10 ^3/uL Basophils # (Auto) 0 0-0.2 10 ^3/uL Nucleated Red Blood Cells 0.1 % Urine Color Yellow Yellow Urine Clarity Clear Clear Urine pH 6.0 5.0-9.0 Urine Specific [place] 1.028 1.001-1.035 Urine Protein 1+ H Negative Urine Ketones Negative Negative Urine Blood Negative Negative /uL Urine Nitrite Negative Negative Urine Bilirubin Negative Negative Urine Urobilinogen Normal Negative mg/dL Urine Leukocyte Esterase Negative Negative /uL Urine RBC 4 0 - 3 /hpf Urine Microscopic WBC 1 0-3 /HPF Urine Squamous Epithelial Cells None seen <5 /hpf Urine Bacteria None seen None Seen /hpf Urine Mucus Few None Seen Urine Glucose Normal Normal mg/dL Sodium Level 138 136-145 mmol/L Potassium Level 4.1 3.5-5.1 mmol/L Chloride Level 107 98-107 mmol/L Carbon Dioxide Level 19 L 20-31 mmol/L Anion Gap 12 5-15 Blood Urea Nitrogen 11 9-23 mg/dL Creatinine 1.11 0.700-1.30 mg/dL Glomerular Filtration Rate Calc 75 >90 mL/min BUN/Creatinine Ratio 9.9 L 10.0-20.0 Serum Glucose 136 H 74-106 mg/dL Calcium Level 10.2 8.7-10.4 mg/dL Total Bilirubin 0.9 0.2-1.0 mg/dL Aspartate Amino Transferase (AST) 23 13-40 U/L Alanine Aminotransferase (ALT) 19 7-40 U/L Alkaline Phosphatase 99 46-116 U/L B-Type Natriuretic Peptide 62.61 0-100 pg/mL Total Protein 7.6 5.7-8.2 g/dL Albumin 4.8 3.2-4.8 g/dL CHEST RADIOGRAPH FINDINGS: Lines and Tubes: None Lungs: Clear Pleura: No effusion. No pneumothorax. Cardiomediastinal contours: Unremarkable Bones: Unremarkable IMPRESSION: No evidence of acute disease. US LT Lower DVT FINDINGS: Left: - Common femoral vein: Compressible - Deep femoral vein: Compressible - Femoral vein: Compressible - Popliteal vein: Non compressible - Posterior tibial vein: Non compressible - Other: Nothing IMPRESSION: Left lower extremity deep venous thrombosis of the popliteal and posterior tibial vein. Findings were communicated per the US tech report. SEPSIS Sepsis Screen Date sepsis recognized/suspect: Nov 12, 2024 Time Sepsis recognized/suspect: 915 Recent Procedure: No On Antibiotic Therapy: No Respiratory Rate >20: No Heart Rate >90: Yes Temp<36 C (96.8 F) or >38.3 C: No SBP <90 or MAP <65 mmHG: No New Acute Mental Status Change: No Is the patient on CPAP, BIPAP,: No Physician Orders Chest Two Views Routine (11/12/24 09:33) Lt Lower Dvt (11/12/24 09:33) * Radiologist Consult (11/12/24 12:32) Admit (11/12/24 12:33) Code Status (11/12/24 12:33) Hydrocodone-Acet 5/325mg Tab (Dresher /32 (11/12/24 12:45) Ondansetron Hcl (Zofran) (11/12/24 12:45) Docusate Sodium Capsule (Colace Capsule) (11/12/24 12:45) Complete Blood Count (11/13/24 04:00) Comprehensive Metabolic Panel (11/13/24 04:00) Condition: Serious (11/12/24 12:33) Acetaminophen Tablet (Tylenol Tablet) (11/12/24 12:45) Morphine Sulfate Injection (11/12/24 12:45) Nitroglycerin Sublingual (Ntrostat Subli (11/12/24 12:45) Morphine Sulfate Injection (11/12/24 12:45) Stat Ekg For Chest Pain (11/12/24 12:33) Notify Md Of Changes From Base (11/12/24 12:33) Management Consulting For 24 Hours (11/12/24 12:33) Emergency Dysrhythmia Protocol (11/12/24 12:) Rhythm Strips Once Every Shift (11/12/24 12:33) Oxygen By Nasal Cannula (11/12/24:33) Platelet Monitoring (11/12/24:) Vte Protocol Initiated (11/12/24:) Heparin Per Standardized Proce (11/12/24 12:33) Discontinue All Im Injections (11/12/24 12:33) Heparin Drip/D5w 100units/Ml (11/12/24 12:45) Hydralazine Hcl Tablet (Apresoline Table (11/12/24 22:00) Amlodipine Tablet (Norvasc Tablet) (11/13/24 10:00) PTPTT (11/12/24 20:00) Clonidine Hcl Tablet (Catapres Tablet) (11/12/24 16:30) Cardiac Diet-2gna,Lofat,Lochol (11/12/24 Dinner) Vital Signs Date Time Temp Pulse Resp B/P (MAP) Pulse Ox O2 Delivery O2 Flow Rate FiO2 11/12/24 15:33 97.9 96 17 196/105 (135) 100 97.9 11/12/24 15:30 Room Air* 0 21 11/12/24 14:23 193/92 11/12/24 14:00 98.8 91 20 193/92 (125) 95 98.8 11/12/24 13:15 Room Air* 0 21 11/12/24 11:07 98.3 98 20 172/78 (109) 97 98.3 11/12/24 11:07 98 20 97 Room Air 11/12/24 09:16 98.4 101 17 158/79 (105) 99 98.4 Laboratory Tests Test 11/12/24 09:46 11/12/24 12:53 White Blood Count 9.5 10^3/uL (4.4-10.8) 7.7 10^3/uL (4.4-10.8) Medications Medications Dose Ordered Sig/Britney Route Start Time Stop Time Status Last Admin Dose Admin Acetaminophen/ Hydrocodone Bitart 1 tab Q4HP PRN PO 11/12/24 12:45 11/12/24 13:21 1 TAB Amlodipine Besylate 10 mg ONCE ONCE PO 11/12/24 14:15 11/12/24 14:16 DC 11/12/24 14:23 10 MG Heparin Sodium (Porcine) 9,000 units ONCE ONCE IV 11/12/24 12:45 11/12/24 13:28 DC 11/12/24 13:48 9,000 UNITS Heparin Sodium/ Dextrose 250 ml @ 20 mls/hr [id number] IV 11/12/24 12:45 11/12/24 13:50 20 MLS/HR Assessment/Plan Assessment/Plan Assessment: Left leg DVT, Hypertension, Hyperlipidemia, Plan: Admit to Tele, IR consult, Patient unable to take Lovenox due to allergy, start heparin drip, PRN antihypertensives, Home medications reconciled, Plan discussed with: Patient My Orders Orders - AGNIESZKA KAUR PMP PROJECT MANAGER Procedure Category Date Status Time * Radiologist Consult CONS 11/12/24 Transmitted 12:32 Admit ADMIT 11/12/24 Transmitted 12:33 Code Status CODE 11/12/24 Transmitted 12:33 Hydrocodone-Acet PHA 11/12/24 In Process 5/325mg Tab (Dresher 12:45 Ondansetron Hcl PHA 11/12/24 In Process (Zofran) 12:45 Docusate Sodium PHA 11/12/24 In Process Capsule (Colace 12:45 Complete Blood Count LAB 11/13/24 Verified 04:00 Comprehensive LAB 11/13/24 Verified Metabolic Panel 04:00 Condition: Serious ANDIE 11/12/24 In Process 12:33 Acetaminophen Tablet PHA 11/12/24 In Process (Tylenol Tablet) 12:45 Morphine Sulfate PHA 11/12/24 In Process Injection 12:45 Nitroglycerin PHA 11/12/24 In Process Sublingual (Ntrostat 12:45 Morphine Sulfate PHA 11/12/24 In Process Injection 12:45 Stat Ekg For Chest ANDIE 11/12/24 In Process Pain 12:33 Notify Of Changes ANDIE 11/12/24 In Process From Base 12:33 Management Consulting For [facility] 11/12/24 In Process 24 Hours 12:33 Emergency Dysrhythmia ANDIE 11/12/24 In Process Protocol 12:33 Rhythm Strips Once ANDIE 11/12/24 In Process Every Shift 12:33 Oxygen By Nasal RT 11/12/24 Transmitted Cannula 12:33 Platelet Monitoring ANDIE 11/12/24 In Process 12:33 Vte Protocol Initiated ANDIE 11/12/24 In Process 12:33 Heparin Per ANDIE 11/12/24 In Process Standardized Proce 12:33 Discontinue All Im ANDIE 11/12/24 In Process Injections 12:33 Heparin Drip/D5w PHA 11/12/24 In Process 100units/Ml 12:45 Hydralazine Hcl PHA 11/12/24 In Process Tablet (Apresoline 22:00 Amlodipine Tablet PHA 11/13/24 In Process (Norvasc Tablet) 10:00 PTPTT LAB 11/12/24 Logged 20:00 Clonidine Hcl Tablet PHA 11/12/24 Logged (Catapres Tablet) 16:30 Cardiac DIET 11/12/24 Transmitted Diet-2gna,Lofat,Lochol Dinner Date of Service: Nov 12, 2024 Billing Provider: AGNIESZKA KAUR Common Visit Codes: [id number] INP/OBS CARE (MOD) AGNIESZKA KAUR Nov 12, 2024 16:37
[2024-11-12 16:48] VITALS: BP 187/100; PULSE 99; RESP 17; TEMP 98.1; O2SAT 98
[2024-11-12 17:54] VITALS: BP 138/74
[2024-11-12 20:30] VITALS: PULSE 80
[2024-11-12 20:48] LABS: INR 1.17 (0.9-1.15); Prothrombin Time 12.2 sec (9.3-11.8)
[2024-11-12 21:00] VITALS: BP 146/91; PULSE 80; RESP 20; TEMP 100; O2SAT 97
[2024-11-12 21:17] LABS: Partial Thromboplastin Time 89.6 SEC (24.5-34.5)
[2024-11-13] VITALS (8 sets, daily range): BP systolic 111–160; BP diastolic 72–104; PULSE 69–93; RESP 18–20; TEMP 96–99.1; O2SAT 96–98
[2024-11-13 03:54] LABS: Hematocrit 39.9 % (41.0-53.0); Hemoglobin 13.4 g/dL (13.5-17.5); Mean Corpuscular Hemoglobin 28.9 pg (28.0-32.0); Mean Corpuscular Volume 85.8 fL (80.0-100.0); Nucleated Red Blood Cells % 0.1 %
[2024-11-13 04:08] LABS: INR 1.14 (0.9-1.15); Partial Thromboplastin Time 52.5 SEC (24.5-34.5); Prothrombin Time 11.9 sec (9.3-11.8)
[2024-11-13 04:17] LABS: Alanine Aminotransferase 16 U/L (7-40); Albumin 4.3 g/dL (3.2-4.8); Alkaline Phosphatase 88 U/L (46-116); Anion Gap 11 (5-15); BUN/Creatinine Ratio 12.7 (10.0-20.0); Blood Urea Nitrogen 13 mg/dL (9-23); Calcium 8.9 mg/dL (8.7-10.4); Carbon Dioxide 21 mmol/L (20-31); Chloride 105 mmol/L (98-107); Potassium 4.0 mmol/L (3.5-5.1); Sodium 137 mmol/L (136-145); Total Protein 6.8 g/dL (5.7-8.2)
[2024-11-13 04:18] LABS: Bilirubin, Total 0.9 mg/dL (0.2-1.0); Glucose 118 mg/dL (74-106)
[2024-11-13] MEDS: LOSARTAN POTASSIUM 25 MG TAB PO SCH (09:20)
[2024-11-13] MEDS: CARVEDILOL 3.125 MG TAB PO SCH (09:20)
--- NOTE | 2024-11-13 09:21 | DVHPNRES ---
Progress Note Date Seen: Nov 13, 2024 Resident Creating Document: ALONZO DUMONT RESIDENT Medical Necessity Reason Pt with a Central, PICC or Fol: No Subjective Review of Systems Migel hSah is a 63-years old male with past medical history of hypertension, dyslipidemia, TIA. He presented to the ED with chief complaint of left leg pain and swelling. He complains of pain in calf area for more than 3 days associated with swelling. The symptoms have been progressively worsening, aggravated with weight-bearing and relieved on lying down. He does not complain of chest pain, shortness of breaths, headache, motor or sensory symptoms. He reports no recent travel, injury, animal bite, nausea , vomiting, fever, rash. He does not report being bed-bound. He complains of an injury see once back after which she was placed on a light duty. He was examined at bedside today. He continues to complain of pain and swelling in the calf area, which has improved with medications. Past history: Hypertension, dyslipidemia, TIA (voice change which resolved on its own) Surgical history: Cholecystectomy Personal history: Nonsmoker, occasional alcohol use, marijuana use ROS: Constitutional: Denies weight loss, fever and chills. HEENT: Denies changes in vision and hearing. Respiratory: Denies shortness of breath and cough Cardiovascular: Denies chest discomfort or palpitations GI: Denies abdominal pain, nausea, vomiting and diarrhea. : Denies dysuria and urinary frequency. Musculoskeletal: Swelling and pain in the left cough area extending from ankle to the knee Skin: For feet hygiene Neurological: Denies dizziness, headache, vision or hearing problems Objective vital signs Vital Sign Date Time Temp Pulse Resp B/P (MAP) Pulse Ox O2 Delivery O2 Flow Rate FiO2 11/13/24 08:42 98.1 85 18 160/104 (122) 97 98.1 11/13/24 07:45 Room Air* 0 21 Total Intake and Output 11/12/24 11/12/24 11/13/24 15:00 23:00 07:00 Intake Total 530 ml 910 ml Output Total 300 ml 500 ml Balance -300 ml 530 ml 410 ml medications Current Medications Medications Dose Ordered Sig/Britney Route Start Time Stop Time Status Last Admin Dose Admin Acetaminophen/ Hydrocodone Bitart 1 tab Q4HP PRN PO 11/12/24 12:45 11/12/24 13:21 1 TAB Ondansetron HCl 4 mg Q4HP PRN IV 11/12/24 12:45 Docusate Sodium 100 mg BIDPRN PRN PO 11/12/24 12:45 Acetaminophen 650 mg Q6HP PRN PO 11/12/24 12:45 Morphine Sulfate 2 mg Q4HPRN PRN IV 11/12/24 12:45 Nitroglycerin 0.4 mg Q5MINP PRN SL 11/12/24 12:45 Morphine Sulfate 2 mg Q30M PRN IV 11/12/24 12:45 Amlodipine Besylate 10 mg DAILY PO 11/13/24 10:00 Heparin Sodium/ Dextrose 250 ml @ 18 mls/hr [id number] IV 11/12/24 22:00 11/13/24 03:22 18 MLS/HR Carvedilol 6.25 mg Q12HR PO 11/13/24 10:00 UNV Examination General: Patient alert and oriented in person, place and time. Patient following commands. HEENT: Normocephalic, atraumatic, moist mucous membranes Respiratory/pulmonary: Clear lungs bilaterally, vesicular murmurs present in almost all lung h[place], no associated crackles or wheezes. Cardiovascular: Normal heart sounds S1 and S2 with no associated murmurs Abdomen: Abdomen nondistended, there is no pain to palpation in any of the abdominal quadrants, no palpable masses. Extremities: Swelling of left lower limb, almost 1.5 times the right leg. Tenderness in the left calf, warm on touch. No difference in temperature of both lower limb. Peripheral Pulses: 3+ Radial (R). 3+ Radial (L). 3+ Dorsalis pedis (R). 3+ Dorsalis pedis(L) Skin: Poor feet hygiene. Neurological: Intact cranial nerves with no focal neurologic deficits laboratory and microbiology Laboratory Tests 11/13/24 03:24 Test 11/13/24 03:24 Range/Units Serum Glucose 118 H 74-106 mg/dL Problem List/Assessment/Plan Problem List/Assessment/Plan #Deep vein thrombosis left lower limb -Monitor for pulmonary embolism. -Doppler ultrasound shows DVT of popliteal and posterior tibial vein. -CXR WNL -EKG shows sinus tachycardia -Continue heparin drip -Pain control with [place] and acetaminophen #Cellulitis, ruled out -WBC count within normal limits #Hypertensive urgency #Hypertension -Blood pressure 196/110 today, requiring IV antihypertensives- amlodipine, hydralazine, clonidine. #Hyperlipidemia #History of TIA Goals of care discussed at patient's bedside for more than 35 minutes Full code Plan discussed with Dr. Esteban Plan discussed with: Patient Date of Service: Nov 13, 2024 Billing Provider: WILLIAM FRENCH MD Common Visit Codes: [id number] INP/OBS CARE(HIGH) ALONZO DUMONT RESIDENT Nov 13, 2024 09:21 WILLIAM FRENCH MD Nov 19, 2024 01:35
--- NOTE | 2024-11-13 10:52 | ECG ---
[facility] Test Date: 2024-11-13 Test Time: 10:41:20 Pat Name: CHARLOTTE WEEKS Department: Room: 0284T A Gender: M Vp Ancillary: KEISHA : 1960 Requested By: POOL JULIEN Order Number: [id number] Reading MD: Jason Vargas Measurements Intervals [place]rell Rate: 76 P: 52 ID: [id number] QRS: -11 QRSD: 88 T: 72 QT: 397 QTc: 447 Interpretive Statements Sinus rhythm Atrial premature complex Probable left atrial enlargement Probable left ventricular hypertrophy Borderline T abnormalities, lateral leads Electronically Signed On 11-19-2024 13:50:43 PDT by Jason Vargas Please click the below link to view image of tracing.
[2024-11-13 11:17] LABS: INR 1.14 (0.9-1.15); Prothrombin Time 11.9 sec (9.3-11.8)
[2024-11-13 11:24] LABS: Partial Thromboplastin Time 70.9 SEC (24.5-34.5)
--- NOTE | 2024-11-13 12:47 | CONS ---
Pharmacy Clinical Information: HEPARIN DRIP, DVT PROTOCOL @1028 APTT 70.9 - NO BOLUS, NO CHANGE NEXT APTT DRAW SCHEDULED @1700 PER RX PROTOCOL CONFIRMED AND READ BACK WITH ELIZABETH GARCIA PHARMACIST Nov 13, 2024 12:47
[2024-11-13 17:36] LABS: INR 1.14 (0.9-1.15); Prothrombin Time 11.9 sec (9.3-11.8)
[2024-11-13 18:00] LABS: Partial Thromboplastin Time 76.9 SEC (24.5-34.5)
[2024-11-13] MEDS: HEPARIN DRIP/D5W 100UNITS/ML 250 ML IV SCH (18:43)
--- NOTE | 2024-11-13 18:43 | CONS ---
Pharmacy Clinical Information: NEW HEP RATE @16 ML/HR OR 1600 UNITS/HR SINCE APTT = 76.9 @1654 11/13 NEXT APTT WINNIE @0100 11/14 PER RX PROTOCOL BACILIO SWAN AWARE DOSE CHANGED FROM 18ML/HR TO 16 ML/HR AND REPEATED BACK AUDREY GANT PHARMACIST Nov 13, 2024 18:43
[2024-11-14 01:00] VITALS: BP 138/88; PULSE 77; RESP 18; TEMP 97.8; O2SAT 93
[2024-11-14 01:05] LABS: INR 1.12 (0.9-1.15); Partial Thromboplastin Time 58.7 SEC (24.5-34.5); Prothrombin Time 11.7 sec (9.3-11.8)
[2024-11-14 05:00] VITALS: BP 142/80; PULSE 72; RESP 18; TEMP 98.4; O2SAT 97
[2024-11-14 05:45] LABS: Chloride 103 mmol/L (98-107); Potassium 4.1 mmol/L (3.5-5.1); Sodium 137 mmol/L (136-145)
[2024-11-14 05:46] LABS: Anion Gap 10 (5-15); Calcium 9.8 mg/dL (8.7-10.4); Carbon Dioxide 24 mmol/L (20-31)
[2024-11-14 05:51] LABS: BUN/Creatinine Ratio 12.5 (10.0-20.0); Blood Urea Nitrogen 14 mg/dL (9-23)
[2024-11-14 05:52] LABS: INR 1.08 (0.9-1.15); Partial Thromboplastin Time 57.9 SEC (24.5-34.5); Prothrombin Time 11.4 sec (9.3-11.8)
[2024-11-14 06:02] LABS: Glucose 110 mg/dL (74-106)
[2024-11-14 08:00] VITALS: PULSE 79
[2024-11-14 09:05] VITALS: BP 154/100; PULSE 72; RESP 17; TEMP 97.1; O2SAT 99
[2024-11-14 11:54] LABS: INR 1.08 (0.9-1.15); Partial Thromboplastin Time 27.1 SEC (24.5-34.5); Prothrombin Time 11.4 sec (9.3-11.8)
[2024-11-14] MEDS ORDERED: MORPHINE SULFATE INJ 2 MG/ml SYRG IV ONE (12:30)
--- NOTE | 2024-11-14 12:47 | DVHDSRES ---
Discharge Summary Date of Admission Resident Creating Document: ALONZO DUMONT RESIDENT Nov 12, 2024 at 12:33 Date of Discharge: Nov 14, 2024 Admitting Diagnosis Deep vein thrombosis left lower limb Wounds: No large wounds Labs/Diagnostic Data: Laboratory Results Test 11/14/24 11:06 11/14/24 04:54 11/13/24 03:24 11/12/24 09:46 Prothrombin Time 11.4 sec (9.3-11.8) Prothrombin Time INR 1.08 (0.9-1.15) Activated Partial Thromboplast Time 27.1 SEC (24.5-34.5) Sodium Level 137 mmol/L (136-145) Potassium Level 4.1 mmol/L (3.5-5.1) Chloride Level 103 mmol/L (98-107) Carbon Dioxide Level 24 mmol/L (20-31) Anion Gap 10 (5-15) Blood Urea Nitrogen 14 mg/dL (9-23) Creatinine 1.12 mg/dL (0.700-1.30) Glomerular Filtration Rate Calc 74 mL/min (>90) BUN/Creatinine Ratio 12.5 (10.0-20.0) Serum Glucose 110 mg/dL (74-106) Calcium Level 9.8 mg/dL (8.7-10.4) White Blood Count 7.9 10^3/uL (4.4-10.8) Red Blood Count 4.65 10^6/uL (4.5-5.90) Hemoglobin 13.4 g/dL (13.5-17.5) Hematocrit 39.9 % (41.0-53.0) Mean Corpuscular Volume 85.8 fL (80.0-100.0) Mean Corpuscular Hemoglobin 28.9 pg (28.0-32.0) Mean Corpuscular Hemoglobin Concent 33.6 g/dL (32.0-36.0) Red Cell Distribution Width 14.4 % (11.8-14.3) Platelet Count 281 10^3/uL (140-450) Mean Platelet Volume 8.4 fL (6.9-10.8) Neutrophils (%) (Auto) 54.5 % (37.0-80.0) Lymphocytes (%) (Auto) 28.4 % (10.0-50.0) Monocytes (%) (Auto) 14.9 % (0.0-12.0) Eosinophils (%) (Auto) 1.7 % (0.0-7.0) Basophils (%) (Auto) 0.5 % (0.0-2.0) Neutrophils # (Auto) 4.3 10 ^3/uL (1.6-8.6) Lymphocytes # (Auto) 2.3 10 ^3/uL (0.4-5.4) Monocytes # (Auto) 1.2 10 ^3/uL (0-1.3) Eosinophils # (Auto) 0.1 10 ^3/uL (0-0.8) Basophils # (Auto) 0 10 ^3/uL (0-0.2) Nucleated Red Blood Cells 0.1 % Total Bilirubin 0.9 mg/dL (0.2-1.0) Aspartate Amino Transferase (AST) 20 U/L (13-40) Alanine Aminotransferase (ALT) 16 U/L (7-40) Alkaline Phosphatase 88 U/L (46-116) Total Protein 6.8 g/dL (5.7-8.2) Albumin 4.3 g/dL (3.2-4.8) Urine Color Yellow (Yellow) Urine Clarity Clear (Clear) Urine pH 6.0 (5.0-9.0) Urine Specific Arion 1.028 (1.001-1.035) Urine Protein 1+ (Negative) Urine Ketones Negative (Negative) Urine Blood Negative /uL (Negative) Urine Nitrite Negative (Negative) Urine Bilirubin Negative (Negative) Urine Urobilinogen Normal mg/dL (Negative) Urine Leukocyte Esterase Negative /uL (Negative) Urine RBC 4 /hpf (0 - 3) Urine Microscopic WBC 1 /HPF (0-3) Urine Squamous Epithelial Cells None seen /hpf (<5) Urine Bacteria None seen /hpf (None Seen) Urine Mucus Few (None Seen) Urine Glucose Normal mg/dL (Normal) B-Type Natriuretic Peptide 62.61 pg/mL (0-100) Other Laboratory Tests 11/14/24 04:54 11/13/24 03:24 Brief Hx & Hospital Course: Migel Shah is a 63-years old male with past medical history of hypertension, dyslipidemia, TIA. He presented to the ER with chief complaint of left leg pain and swelling. He complained of pain in calf area for more than 3 days associated with swelling. The symptoms have been progressively worsening, resulting in intractable pain, aggravated with weight-bearing and relieved on lying down. Denied complain of chest pain, shortness of breaths, headache, motor or sensory symptoms. No recent travel, injury, animal bite, nausea , vomiting, fever, rash. He does not report being bed-bound. He has history of an injury at work 6 months back after which she was placed on a light duty. During his stay, Doppler ultrasound shows DVT of popliteal and posterior tibial vein. Monitored for development of PE, tachycardia has resolved, will defer CTA for now. He had significantly elevated BP on admission, requiring 5 doses of antihypertensive medications. His vitals are stabilized now. Labs show no significant abnormality. He can be discharged on Xeralto, will follow up closely with PCP. Discharge plan: Follow up with PCP in one week Continue Xeralto for 3 months Continue home medications Operations or Procedures US LT Lower DVT HISTORY: R/o dvt COMPARISON: US LT LOWER DVT on DOS: 10/15/24 TECHNIQUE: Duplex doppler evaluation of the deep venous system of the lower extremity from the common femoral veins, superficial femoral vein, great saphenous vein, deep femoral vein, popliteal vein, and calf veins, including color doppler and spectral/pulsed waveform analysis, was performed. FINDINGS: Left: - Common femoral vein: Compressible - Deep femoral vein: Compressible - Femoral vein: Compressible - Popliteal vein: Non compressible - Posterior tibial vein: Non compressible - Other: Nothing IMPRESSION: Left lower extremity deep venous thrombosis of the popliteal and posterior tibial vein. Findings were communicated per the US tech report. --- CHEST RADIOGRAPH Indication: R/o PNA, CHF Technique: Frontal and lateral view of the chest was obtained Comparison: None FINDINGS: Lines and Tubes: None Lungs: Clear Pleura: No effusion. No pneumothorax. Cardiomediastinal contours: Unremarkable Bones: Unremarkable IMPRESSION: No evidence of acute disease. Condition at Discharge: Stable Final Diagnosis/Problems List Deep vein thrombosis left lower limb Cellulitis, ruled out Hypertensive urgency Hypertension Hyperlipidemia History of TIA Discharge Disposition: Home Discharge Instruct/Medications Diet: Cardiac 2g Na,low cholest Activity: No Restrictions, As Tolerated Follow Up/Referral: Follow up with PCP in one week Medications: Continue Xeralto for 3 months Continue home medications Care Plan: Follow up with PCP in one week Continue Xeralto for 3 months Continue home medications Scheduled Amlodipine Besylate (Amlodipine Besylate), 1 TAB PO DAILY, (Reported) Aspirin (Aspirin Low Dose), 81 MG PO DAILY Atorvastatin Calcium (Atorvastatin Calcium), 40 MG PO DAILY Carvedilol (Carvedilol), 6.25 MG PO BID Cephalexin Monohydrate (Cephalexin), 1 CAP PO QID Hydralazine HCl (Hydralazine HCl), 2 TAB PO BID, (Reported) Losartan Potassium (Losartan Potassium), 50 MG PO DAILY Nifedipine (Nifedipine Er), 90 MG PO DAILY Rivaroxaban (Xarelto), 15 MG PO BID Rivaroxaban (Xarelto), 1 TAB PO DAILY Scheduled PRN Hydrocodone-Acetaminophen (Hydrocodone Bitartrate/AC 5-325 mg), 1 TAB PO TIDP PRN Discharge Statement: "Patient was advised to return to the ER or call 911 if any headaches, dizziness, shortness of breath, chest pain, abdominal pain, bleeding, fevers, or worsening of medical condition. Patient was counseled about treatment plan, medications, possible side effects, patientverbalized understanding. All questions were answered to the best of my ability. This discharge took greater then 30 minutes in planning, reviewing documentation, counseling the patient, and discussing with other team members." ASSESSMENT ASSESSMENT Assessment Deep vein thrombosis left lower limb Cellulitis, ruled out Hypertensive urgency Hypertension Hyperlipidemia History of TIA Date of Service: Nov 14, 2024 Billing Provider: WILLIAM FRENCH MD Common Visit Codes: 63110-QBN/OBS DISCH DAY >30min ALONZO DUMONT Nov 14, 2024 12:47 WILLIAM FRENCH MD Nov 19, 2024 21:32
[2024-11-14] MEDS ORDERED: RIVA15TA PO (12:56)
[2024-11-14] MEDS ORDERED: RIVA20TA PO (12:56)
[2024-11-14 13:00] VITALS: BP 132/75; PULSE 71; RESP 17; TEMP 97.7; O2SAT 95
--- NOTE | 2024-11-14 13:13 | CONS ---
Pharmacy Clinical Information: HEPARIN DRIP UPDATE aPTT 27.1 (FALSE RESULT) NO CHANGE NEXT aPTT 11/14@1900 COMMUNICATED WITH PRASHANT CARLISLE PHARMACIST Nov 14, 2024 13:13
[2024-11-14 15:02] VITALS: BP 140/86; PULSE 80; TEMP 36.2
[2024-11-14] MEDS ORDERED: HYDR-4902 PO (15:58)
== END 2024-11-14 17:00 | disposition home or self-care (01) | DRG 197 ==
LOC: ER 08:55 → OVERFLOW 12:33 → TELE-WESTW 15:41
PROVIDERS: ADMIT Student in an Organized Health Care Education/Training Program; ATTEND Nurse Practitioner Family
DX: I82.442 Acute embolism and thrombosis of left tibial vein (principal); I82.432 Acute embolism and thrombosis of left popliteal vein; I16.0 Hypertensive urgency; I10 Essential (primary) hypertension; E78.5 Hyperlipidemia, unspecified; R00.0 Tachycardia, unspecified; Z91.014 Allergy to mammalian meats; Z86.73 Personal history of transient ischemic attack (TIA), and cerebral infarction without residual deficits; Z79.82 Long term (current) use of aspirin; Z79.899 Other long term (current) drug therapy
CPT/HCPCS: 36415; 71046; 80048; 80053; 81001; 83880; 85025; 85610; 85730; 93005; 93971; 96374; G0378